=== PATIENT | female | born 1985 | race Caucasian/White ===

== ENCOUNTER 2020-06-09 06:36 | Outpatient (CLI) | payer OTHER, SELFPAY ==
--- NOTE | 2020-06-10 11:56 | WPDNEUROLOGY ---
Neurology EEG Report General Information Date of Study: 06/09/20 TEST EEG DIAGNOSIS Seizure CONDITION OF RECORDING Awake,drowsy and sleep EEG NUMBER [id number] CLINICAL HISTORY patient reported that for the last year she has been experiencing issues with cognitive thinking, losing train of thoughts, and also some memory loss EEG DESCRIPTION awake drowsy and sleep. Basic resting occipital frequency consist of moderate amount of fairly well-organized low to medium voltage 8 to 10 hertz per 2nd alpha admixed with low-voltage 15 to 18 hertz per 2nd beta activity. During drowsiness low-voltage beta activity seen diffusely admixed vexing and waning alpha activity posteriorly. Intermittent regular EKG artifact is noted anteriorly. Bilateral symmetrical sleep activity seen during sleep. Non paroxysmal nonfocal nonlateralizing. IMPRESSION . Normal EEG
== END 2020-06-09 06:37 | disposition home or self-care (01) ==
PROVIDERS: PCP Emergency Medicine; Visit Provider Psychiatry & Neurology Neurology
DX: R56.9 Unspecified convulsions (principal)
CPT/HCPCS: 95819

== ENCOUNTER 2021-02-05 13:33 | Outpatient (CLI) | payer OTHER, SELFPAY ==
--- NOTE | 2021-02-05 13:30 | ECG_ITS ---
Measurements Intervals [place] Rate: 65 P: 45 DC: 159 QRS: 24 QRSD: 92 T: 17 QT: 380 QTc: 397 Interpretive Statements SINUS RHYTHM BASELINE ARTIFACT- I, III, AVL, AVF NORMAL ECG Electronically Signed On 02-05-2021 21:04:59 CDT by Sunny Saeed D.O.
[2021-02-05 14:19] LABS: Hematocrit 38.1 % (37.0-47.0); Hemoglobin 11.4 g/dL (12.0-15.0)
[2021-02-05 14:32] LABS: Anion Gap 11 mmol/L (8-16); Blood Urea Nitrogen 9 mg/dL (7-17); Calcium 9.6 mg/dL (8.4-10.2); Carbon Dioxide 26 mmol/L (22-30); Chloride 105 mmol/L (98-107); Estimated Glomerular Filt Rate > 60; Glucose 111 mg/dL (65-105); Potassium 3.8 mmol/L (3.4-5.0); Sodium 142 mmol/L (137-145)
== END 2021-02-05 13:34 | disposition home or self-care (01) ==
LOC: ANHSURGERY 13:35
PROVIDERS: Anesthesiology; PCP Emergency Medicine; Visit Provider Surgery
DX: E11.9 Type 2 diabetes mellitus without complications (principal); Z79.899 Other long term (current) drug therapy; D64.9 Anemia, unspecified; I10 Essential (primary) hypertension; Z01.818 Encounter for other preprocedural examination
CPT/HCPCS: 36415; 80048; 85014; 85018; 93005

== ENCOUNTER → 2021-02-10 00:23 | Outpatient (CLI) | payer OTHER, SELFPAY ==
[2021-02-10 17:56] LABS: SARS-CoV-2 RNA PCR Negative
== END ==
PROVIDERS: PCP Emergency Medicine; Visit Provider Surgery
DX: Z01.812 Encounter for preprocedural laboratory examination (principal); Z20.822 Contact with and (suspected) exposure to COVID-19
CPT/HCPCS: C9803; U0003; U0005

== ENCOUNTER 2021-02-14 00:53 | Day surgery (SDC) | payer OTHER, SELFPAY ==
[2021-01-03 11:42] VITALS: BMI 42.7
--- NOTE | 2021-02-13 08:02 | PM.SD2 ---
Same Day Admit/Disch: HPI History of Present Illness Chief complaint: internal and external hemorrhoids stage 4 Narrative: Theresa Dutta is a 35 year old female Who was seen in the office back in November with complaints of hemorrhoids. She has noticed hemorrhoidal protrusion, prolapse, as well as some bleeding and itching. This is bothering her at least a couple times a week. She was noted to have stage IV internal and external hemorrhoids in both the right anterior and right posterior position. She is taken to surgery now for hemorrhoidectomy under anesthesia. Patient has a history of polycystic ovarian syndrome, morbid obesity, hypothyroidism, and hypertension. [facility] Past Medical History Medical History (Updated 02/14/21 @ 09:52 by Baldev Gallardo MD) BMI 40.0-44.9, adult Cognitive and behavioral changes Diabetes mellitus HTN (hypertension) Hypothyroidism (acquired) Morbid obesity with BMI of 40.0-44.9, adult PCOS (polycystic ovarian syndrome) Family History Family History Mother Hypertension Family history of elevated blood lipids Sibling Hypertension Social History Social History Smoking status: Never smoker Tobacco type: cigarettes Alcohol intake: current Alcohol use details: ONCE A YEAR Substance use: never Substance use type: does not use Living arrangements: with family 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 Gender identity (if verbalized by the patient): Female Spiritual care concerns: No Same Day Admit/Disch: Med Pre-admit Medications Home Medications Medication Instructions Recorded Confirmed Type hydrochlorothiazide 25 mg tablet 25 mg PO DAILY 08/10/19 02/14/21 History levothyroxine 25 mcg tablet 25 mcg PO DAILY 08/10/19 02/14/21 History metformin 1,000 mg tablet,extended 1,000 mg PO BID 08/10/19 02/14/21 History release 24hr metoprolol succinate 25 mg 25 mg PO DAILY 04/18/20 02/14/21 History tablet,extended release 24 hr cholecalciferol (vitamin D3) 1,250 50,000 unit PO WEEKLY cap 06/28/20 02/14/21 History mcg (50,000 unit) capsule ezetimibe 10 mg tablet 10 mg PO DAILY #90 tablet 09/25/20 02/14/21 Rx ferrous sulfate 325 mg PO BID 01/03/21 02/14/21 History ketorolac 10 mg PO Q6H 4 Days #16 tablet 02/14/21 Rx oxycodone-acetaminophen [Percocet] 1 - 2 tablet PO Q6H PRN #30 tablet 02/14/21 Rx Exam Const: General: comfortable, no acute distress, alert and awake HENMT: Head: normocephalic and atraumatic Mouth: Yes Normal oral and palatal mucosa present Eyes: Conjunctivae: conjunctivae normal Pupils: Equal, round and reactive pupils present EOM: EOMs intact bilaterally Neck: Neck: normal visual inspection, no lymphadenopathy and nontender Resp: Effort & Inspection: normal respiratory effort Auscultation: clear to auscultation bilaterally Cardio: Rate: regular rate Rhythm: regular rhythm Heart sounds: no gallops, no murmurs and no rubs GI: Inspection: non-distended and obesity GI Palp: Yes Soft to palpation, No Tenderness to palpation present (GI), No Hepatomegaly present and No Splenomegaly present Rectal Exam: normal sphincter tone, External hemorrhoid(s) present and Internal hemorrhoid(s) present ( Stage IV, right anterior and right posterior location.) Skin: Lesions: no lesions Rashes: no rashes Neuro: General: no focal motor deficits and CN's II-XI intact bilaterally Cranial nerves: Yes Equal, round and reactive pupils present, Yes Bilaterally intact EOM present, Yes facial symmetry and Yes Midline tongue present Speech: normal speech Motor exam (neuro): 5/5 motor strength present throughout and Motor abnormalities not present Extrem: General: no clubbing, cyanosis or edema and edema Psych: Affect: normal affect Thought process: Normal thought process present Insight: Good insight present (Psych) DS: Summ
--- NOTE | 2021-02-13 13:18 | WPDANESEPPF ---
Anes - Initial Pre Proc Eval Procedure: Operation Date: 02/14/21 09:30 Proposed Procedures p Excision Two Complex Internal and External Hemorrhoids - Baldev Gallardo MD Date/Time: 02/13/21 13:18 Surgeon: Baldev Gallardo MD Pre Op Diagnosis: internal and external hemorrhoids stage 4 Patient Data Age: 35 Gender: F Height: 1.75 m Weight: 131.5 kg Allergies Allergy/AdvReac Type Severity Reaction Status Date / Time No Known Allergies Allergy Verified 02/14/21 08:01 Home Medications Medication Instructions Recorded Confirmed Type hydrochlorothiazide 25 mg tablet 25 mg PO DAILY 08/10/19 02/14/21 History levothyroxine 25 mcg tablet 25 mcg PO DAILY 08/10/19 02/14/21 History metformin 1,000 mg tablet,extended 1,000 mg PO BID 08/10/19 02/14/21 History release 24hr metoprolol succinate 25 mg 25 mg PO DAILY 04/18/20 02/14/21 History tablet,extended release 24 hr cholecalciferol (vitamin D3) 1,250 50,000 unit PO WEEKLY cap 06/28/20 02/14/21 History mcg (50,000 unit) capsule ezetimibe 10 mg tablet 10 mg PO DAILY #90 tablet 09/25/20 02/14/21 Rx ferrous sulfate 325 mg PO BID 01/03/21 02/14/21 History Patient hx anesthesia problems: none Family hx anesthesia problems: none PMFSH Past Medical History Medical History (Updated 02/13/21 @ 13:20 by Handy Martinez MD) BMI 40.0-44.9, adult Cognitive and behavioral changes Diabetes mellitus HTN (hypertension) Hypothyroidism (acquired) Morbid obesity with BMI of 40.0-44.9, adult PCOS (polycystic ovarian syndrome) Family History Family History Mother Hypertension Family history of elevated blood lipids Sibling Hypertension Social History Social History Smoking status: Never smoker Tobacco type: cigarettes Alcohol intake: current Alcohol use details: ONCE A YEAR Substance use: never Substance use type: does not use Living arrangements: with family 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 Questions were solicited and answers provided to the satisfaction of the patient/family/POA.
[2021-02-14] VITALS (10 sets, daily range): BP systolic 131–154; BP diastolic 82–93; PULSE 78–101; RESP 16–20; TEMP 36.3–36.4; O2SAT 95–100
[2021-02-14] MEDS: ACETAMINOPHEN 500 MG TABLET 1000 MG PO (08:04)
[2021-02-14] MEDS: KETOROLAC 15 MG/ML VIAL (*BKC) IV PUSH (08:22)
[2021-02-14] MEDS: LACTATED RINGERS 1,000 ML 30 ML IV CONT ×2 (08:22→09:52)
--- NOTE | 2021-02-14 08:37 | WPDHPUPDATE1 ---
History and Physical Update Update Date/Time: 02/14/21 08:37 History and Physical has been reviewed, including an updated exam of the patient. There are NO changes in the patient's condition. Risks, benefits, and alternatives have been discussed and questions answered. Patient agrees to proceed with procedure.
[2021-02-14] MEDS: ceFAZolin 3 GM/D5W 100 ML 100 ML IVPB (08:49)
[2021-02-14] MEDS: BUPIVACAINE/EPINEPHRINE 0.5% 10 ML VIAL 50 ML INFILTRATE (09:35)
--- NOTE | 2021-02-14 09:57 | P.OP_ITS ---
Procedure Note - Detailed Date of Procedure 02/14/21 Pre-op Diagnosis internal and external hemorrhoids stage 4 Post-op Diagnosis same Procedure Performed Excision 2 complexes internal and external hemorrhoids Surgeon Baldev Gallardo MD Detail Technician Gaye Kendallmelanie REVIEW COORDINATOR REVIEW COORDINATOR Anesthesia general and local (0.5% Marcaine with epinephrine; Exparel) Indications Patient has had chronic prolapsed internal and external hemorrhoids for quite some time. They are uncomfortable and bleed intermittently. Exam showed 2 complexes of stage IV internal and external hemorrhoids -1 at the right anterior location, the other at the right posterior location. She is taken to surgery now for excision of both complexes. Findings Stage IV internal and external hemorrhoids at the expected positions as noted above. Description of Procedure Patient was taken to surgery and induced into general anesthesia. She was then turned prone dimitri-knife position. The buttocks were taped apart. Prep and drape was carried out. 0.5% Marcaine with epinephrine local anesthesia was infiltrated using a total of 40 cc. 20 cc was infiltrated deep subdermal. 20 cc was infiltrated intrasphincteric. We placed a medium Hill-Becerra anoscope in the rectum. The area was inspected and no additional findings were noted. We turned our attention to the largest of the 2 complexes which was at the right anterior position. This complex of internal and external hemorrhoids were then excised with the cautery. Cautery was used for hemostasis. The wound was closed with running locking 4 0 chromic suture. We then exposed the right posterior complex. Similarly, the internal and external hemorrhoids were excised. The wound was closed with running locking 4 0 chromic suture. Once both hemorrhoidal complexes were removed, we then infiltrated 20 cc of Exparel. The Exparel was infiltrated primarily around the areas of the 2 excisions. All 20 cc were used. We then dressed the wound with Xeroform gauze fluffs and pr omise panties. Patient was returned to a supine position. She was awakened and taken to recovery in good condition. Sponge and needle counts were correct x2. Estimated Blood Loss 5 Drains No Packing No Pathology yes (Right anterior internal and external hemorrhoids, right posterior internal and external hemorrhoids.) Complications None Condition stable Disposition PACU
[2021-02-14] MEDS: ONDANSETRON INJ 4 MG/2 ML VIAL IV PUSH (10:10)
[2021-02-14 10:21] LABS: Glucose Point of Care 194 mg/dl (65-105)
[2021-02-14] MEDS: HALOPERIDOL LACTATE 5 MG/ML VIAL 1 MG IV PUSH (10:43)
[2021-02-14] MEDS: SCOPOLAMINE 1.5 MG PATCH TRANSDERM (10:43)
== END 2021-02-14 11:59 | disposition home or self-care (01) ==
PROVIDERS: PCP Emergency Medicine; Visit Provider Surgery
PROC: (CPT 46260; principal; 2021-02-14 09:30)
DX: K64.3 Fourth degree hemorrhoids (principal); K64.4 Residual hemorrhoidal skin tags; I10 Essential (primary) hypertension; E11.9 Type 2 diabetes mellitus without complications; E03.9 Hypothyroidism, unspecified; E28.2 Polycystic ovarian syndrome; E66.01 Morbid (severe) obesity due to excess calories; Z68.41 Body mass index [BMI] 40.0-44.9, adult; Z79.84 Long term (current) use of oral hypoglycemic drugs
CPT/HCPCS: 46260; 82948; 88304; A9270; C9290; J0330; J0690; J1100; J1630; J1885; J2250; J2405; J2704; J3010; J7120

== ENCOUNTER → 2021-07-07 00:07 | Outpatient (CLI) | payer OTHER, SELFPAY ==
[2021-07-07 17:39] LABS: SARS-CoV-2 RNA PCR Negative
== END ==
PROVIDERS: PCP Emergency Medicine; Visit Provider Surgery
DX: Z01.812 Encounter for preprocedural laboratory examination (principal); Z20.822 Contact with and (suspected) exposure to COVID-19
CPT/HCPCS: C9803; U0003; U0005

== ENCOUNTER 2021-07-11 02:10 | Day surgery (SDC) | payer OTHER, SELFPAY ==
[2021-07-04 12:31] VITALS: BMI 43.5
--- NOTE | 2021-07-04 13:45 | PC.NURSE ---
Report to the Outpatient Waiting Room, entrance under the green pavilion located off [facility], at time __0600 on date ____07/11/21___. OR Time: ___729 . - You and your visitor will be asked a series of questions to screen for COVID 19 for your protection. - A mask is required within the hospital. - Only one visitor is allowed at this time. Patient visitors will be guided where to wait when not with patient. Preoperative COVID Testing Requirements: No COVID Test needed if: (proof is required; if not received patient will have Rapid Test prior to entry) - Patient has received COVID Vaccine at least 14 days prior to procedure date or - Patient has positive COVID test result within last 90 days of surgery date. COVID Test needed if above criteria is not met If not COVID vaccinated a COVID test must be conducted within 72 hours of surgery and patient is asked to isolate self from time of testing until procedure. You will go to the [employer] [facility] for your COVID testing. The [employer] [facility] site is located at the corner of [address] [facility]. COVID SWAB TEST 07/07/21 @ 0910 You will only be called if COVID results are positive and your surgeon may reschedule your elective surgery date. Patients may have clear liquids (water, carbonated beverages, clear teas, apple juice) until 3 hours prior to surgery with a maximum of 20 ounces. - No food from midnight until time of surgery STOP CLEAR LIQUIDS @ 0430 ON DAY OF SURGERY - Infants may have breast milk until 4 hours before surgery, infant formula 6 hours prior to surgery. - Children will be allowed to drink immediately following surgery. If applicable, please bring a bottle or sippy cup to assist with drinking. Juice, water, soda, and popsicles are readily available. For infants on formula, please bring formula the day of surgery. Pacifiers are allowed. Take the following medications with a SIP of water the morning of surgery: _METOPROLOL, LEVOTHYROXINE Medications to discontinue per physician N/A Date to take last dose N/A Please no make-up, nail armenian, hairspray, perfume, deodorant, or body powder the day of surgery. No jewelry (including any body piercings) or valuables the day of surgery, leave them at home. Please take a shower or bath the night before, or the morning of, surgery with an antibacterial soap. Wear comfortable, loose fitting clothing. Children are encouraged to wear pajamas. - Jewelry must be removed prior to entering the operating room. Rings and piercings that are not removed may be cut off. - The hospital will not accept responsibility for valuables. - Please leave all valuables, including medications, at home the day of surgery. If you are going home after surgery, a licensed logging truck driver must drive you home. - NO public transportation without another adult. - We recommend that an adult stay with you for 24 hours following discharge. - We also recommend that you do not drive, make important decision, drink alcoholic beverages, or take any drugs that were not prescribed by your health care provider for at least 24 hours after your discharge time. For Pediatric surgeries, we recommend two adults accompany the child home (only one inside the building at this time). Follow any additional instructions given to you from your surgeon. Telephone instructions given to DOMINIK and asked if any additional questions and then verbalized understanding. Patient advised to call surgeon office or pre surgery nurse liaison [phone] if any additional questions.
--- NOTE | 2021-07-10 13:46 | PM.SD2 ---
Same Day Admit/Disch: HPI History of Present Illness Chief complaint: Anal Fissure Narrative: Theresa Dutta is a 35 year old femaleWho underwent excision of 2 complexes of internal and external hemorrhoids on February 14, 2021. Following that surgery she had significant rectal pain. From there she had persistent pain and developed an anal fissure. This is been treated with bulk fiber supplements, mineral oil, and smooth muscle relaxants including nifedipine. 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 She is taken to surgery now for lateral internal sphincterotomy. She has a history of non insulin-dependent diabetes, essential hypertension, hypothyroidism, and polycystic ovarian syndrome. [facility] Past Medical History Medical History BMI 40.0-44.9, adult Cognitive and behavioral changes Diabetes mellitus HTN (hypertension) Hypothyroidism (acquired) Morbid obesity with BMI of 40.0-44.9, adult PCOS (polycystic ovarian syndrome) Surgical History Surgical History H/O hemorrhoidectomy 02/14/21 Excision 2 complexes internal and external hemorrhoids Family History Family History Mother Hypertension Family history of elevated blood lipids Sibling Hypertension Social History Social History Alcohol intake: current Alcohol use details: ONCE A YEAR Substance use: never Substance use type: does not use Living arrangements: with family 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 Gender identity (if verbalized by the patient): Female Sexual Orientation (if Verbalized by the Patient): Straight or Heterosexual Spiritual care concerns: No Same Day Admit/Disch: Med Pre-admit Medications Home Medications Medication Instructions Recorded Confirmed Type hydrochlorothiazide 25 mg tablet 25 mg PO DAILY 08/10/19 07/11/21 History levothyroxine 25 mcg tablet 25 mcg PO DAILY 08/10/19 07/11/21 History metformin 1,000 mg tablet,extended 1,000 mg PO BID 08/10/19 07/11/21 History release 24hr metoprolol succinate 25 mg 25 mg PO DAILY 04/18/20 07/11/21 History tablet,extended release 24 hr cholecalciferol (vitamin D3) 1,250 50,000 unit PO WEEKLY cap 06/28/20 07/11/21 History mcg (50,000 unit) capsule ezetimibe 10 mg tablet 10 mg PO DAILY #90 tablet 09/25/20 07/11/21 Rx ferrous sulfate 325 mg PO BID 01/03/21 07/11/21 History amlodipine [Norvasc] 5 mg PO DAILY 07/04/21 07/11/21 History hydrocodone-acetaminophen 1 - 2 tablet PO Q6H PRN #20 tablet 07/11/21 Rx ketorolac 10 mg PO Q6H 4 Days #16 tablet 07/11/21 Rx mineral oil 15 ml PO BID #473 ml 07/11/21 Rx psyllium husk (with sugar) 1 tbsp PO BID #60 packet 07/11/21 Rx [Metamucil (with sugar)] Exam Const: General: comfortable, no acute distress, alert and awake HENMT: Head: normocephalic and atraumatic Mouth: Yes Normal oral and palatal mucosa present Eyes: Conjunctivae: conjunctivae normal Pupils: Equal, round and reactive pupils present EOM: EOMs intact bilaterally Neck: Neck: normal visual inspection, no lymphadenopathy and nontender Resp: Effort & Inspection: normal respiratory effort Auscultation: clear to auscultation bilaterally Cardio: Rate: regular rate Rhythm: regular rhythm Heart sounds: no gallops, no murmurs and no rubs GI: Inspection: non-distended and obesity GI Palp: Yes Soft to palpation, No Tenderness to palpation present (GI), No Hepatomegaly present and No Splenomegaly present Rectal Exam: abnormal sphincter tone increased, Anal fissure(s) present ( Posterior midline), No mass and tenderness Skin: Lesions: no lesions Rashes: no rashes Neuro: General: no focal motor deficits and CN's II-XI intact bilaterally Cranial nerves: Yes Equal, round and reactive pupils present, Yes Bilaterally
[2021-07-11] VITALS (8 sets, daily range): BP systolic 116–144; BP diastolic 79–92; PULSE 83–105; RESP 10–18; TEMP 36.4–36.9; O2SAT 97–100
--- NOTE | 2021-07-11 06:45 | WPDANESEPPF ---
Anes - Initial Pre Proc Eval Procedure: Operation Date: 07/11/21 07:30 Proposed Procedures p Lateral Internal Sphincterotomy - Baldev Gallardo MD Date/Time: 07/11/21 06:45 Surgeon: Baldev Gallardo MD Pre Op Diagnosis: Anal Fissure Patient Data Age: 35 Gender: F Height: 1.73 m Weight: 130 kg Allergies Allergy/AdvReac Type Severity Reaction Status Date / Time No Known Allergies Allergy Verified 06/04/21 10:34 Home Medications Medication Instructions Recorded Confirmed Type hydrochlorothiazide 25 mg tablet 25 mg PO DAILY 08/10/19 07/04/21 History levothyroxine 25 mcg tablet 25 mcg PO DAILY 08/10/19 07/04/21 History metformin 1,000 mg tablet,extended 1,000 mg PO BID 08/10/19 07/04/21 History release 24hr metoprolol succinate 25 mg 25 mg PO DAILY 04/18/20 07/04/21 History tablet,extended release 24 hr cholecalciferol (vitamin D3) 1,250 50,000 unit PO WEEKLY cap 06/28/20 07/04/21 History mcg (50,000 unit) capsule ezetimibe 10 mg tablet 10 mg PO DAILY #90 tablet 09/25/20 07/04/21 Rx ferrous sulfate 325 mg PO BID 01/03/21 07/04/21 History amlodipine [Norvasc] 5 mg PO DAILY 07/04/21 07/04/21 History Patient hx anesthesia problems: none Family hx anesthesia problems: none Results Review: All pre-operative results and documents have been reviewed as part of the pre-operative evaluation. [facility] Past Medical History Medical History BMI 40.0-44.9, adult Cognitive and behavioral changes Diabetes mellitus HTN (hypertension) Hypothyroidism (acquired) Morbid obesity with BMI of 40.0-44.9, adult PCOS (polycystic ovarian syndrome) Surgical History Surgical History H/O hemorrhoidectomy 02/14/21 Excision 2 complexes internal and external hemorrhoids Family History Family History Mother Hypertension Family history of elevated blood lipids Sibling Hypertension Social History Social History Alcohol intake: current Alcohol use details: ONCE A YEAR Substance use: never Substance use type: does not use Living arrangements: with family 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 Informed Consent: The patient's anesthetic plan and its attendant risks and benefits were discussed with the patient/family/POA. Questions were solicited and answers provided to the satisfaction of the patient/family/POA.
[2021-07-11] MEDS: ACETAMINOPHEN 500 MG TABLET 1000 MG PO (07:02)
[2021-07-11] MEDS: SCOPOLAMINE 1.5 MG PATCH TRANSDERM (07:04)
[2021-07-11] MEDS: LACTATED RINGERS 1,000 ML 30 ML IV CONT ×3 (07:05→11:08)
[2021-07-11] MEDS: KETOROLAC 15 MG/ML VIAL (*BKC) IV PUSH (07:08)
--- NOTE | 2021-07-11 07:27 | SUR.PREOP ---
Dr. Gallardo delayed until 0830 for surgery start time, patient and visitor informed.
--- NOTE | 2021-07-11 08:25 | WPDHPUPDATE1 ---
History and Physical Update Update Date/Time: 07/11/21 08:25 History and Physical has been reviewed, including an updated exam of the patient. There are NO changes in the patient's condition. Risks, benefits, and alternatives have been discussed and questions answered. Patient agrees to proceed with procedure.
[2021-07-11] MEDS: ceFAZolin 3 GM/D5W 100 ML 100 ML IVPB (08:44)
[2021-07-11] MEDS: BUPIVACAINE HCL 0.5% PF 30 ML VIAL 20 ML INFILTRATE (09:12)
--- NOTE | 2021-07-11 09:25 | P.OP_ITS ---
Procedure Note - Detailed Date of Procedure 07/11/21 Pre-op Diagnosis Anal Fissure Post-op Diagnosis same Procedure Performed Lateral internal sphincterotomy Surgeon Baldev Gallardo MD Personnel Manager Salima Jaimes [facility] Anesthesia general and local (0.5% Marcaine with Exparel) Indications Patient had complex hemorrhoidectomy 5 months ago. She had problems with persistent rectal pain and has developed a posterior anal fissure. This is failed the heal despite multiple nonsurgical treatment attempts. She is taken to surgery now for lateral internal sphincterotomy. Findings The posterior midline fissure was extremely extensive. It not only included the posterior midline but also involved the entire anal canal with exposed sphincter muscle and mucus exudate in the posterior midline. Sphincter tone was increased as expected. Description of Procedure The patient was taken to surgery and induced into general anesthesia. She was then turned into a prone position and positioned in prone dimitri-knife. The buttocks were taped apart. Prep and drape was carried out. The findings associated in the posterior midline were as above. Local anesthesia was infiltrated using 20 cc deep subdermal and 20 cc intra sphincteric. A small incision was made in the left lateral position. Using a small curved clamp, the lower 3rd of the internal sphincter muscle was gently dissected and brought up into the incision. It was divided with the cautery. Cautery was used for hemostasis on some of the anal canal mucosa as well. Gentle pressure was held and hemostasis looked good. The rectal area was dressed with Xeroform gauze fluffs and promise panties. The patient was returned to a supine position, awakened, extubated and then taken to recovery in good condition. Sponge and needle counts were correct x2. Estimated Blood Loss -5 Drains No Packing No Pathology none sent Complications No immediate complications Condition stable Disposition PACU
--- NOTE | 2021-07-11 11:40 | SUR.PHASEII ---
Patient's vitals are all stable and she is getting dressed.
== END 2021-07-11 11:45 | disposition home or self-care (01) ==
PROVIDERS: PCP Emergency Medicine; Visit Provider Surgery
PROC: (CPT 46080; principal; 2021-07-11 07:30)
DX: K60.1 Chronic anal fissure (principal); K59.4 Anal spasm; I10 Essential (primary) hypertension; E11.9 Type 2 diabetes mellitus without complications; E03.9 Hypothyroidism, unspecified; E28.2 Polycystic ovarian syndrome; E66.01 Morbid (severe) obesity due to excess calories; Z68.41 Body mass index [BMI] 40.0-44.9, adult; Z79.84 Long term (current) use of oral hypoglycemic drugs
CPT/HCPCS: 46080; A9270; C9290; J0330; J0690; J1100; J1885; J2250; J2405; J2704; J3010; J7120

== ENCOUNTER 2022-07-11 13:49 | Outpatient (CLI) | payer OTHER, SELFPAY ==
--- NOTE | ~2022-07-11 | MMUS_ITS ---
EXAMINATION: MM diagnostic moni BI w thomas, US breast BI complete HISTORY: Bilateral nipple pain, tenderness, inverted nipples TECHNIQUE: ML, MLO and craniocaudal 3-D tomosynthesis images of both breasts were performed and [facility] were generated. CAD analysis was submitted and interpreted. High resolution bilateral complete breast ultrasound including all 4 quadrants and subareolar areas was performed. COMPARISON: None BREAST PARENCHYMAL COMPOSITION: The breasts are heterogeneously dense, which may obscure small masses . FINDINGS: MAMMOGRAPHIC FINDINGS: No suspicious mass or architectural distortion, malignant calcification, skin thickening or retractio n is detected. ULTRASOUND: No suspicious mass or shadowing of either breast is detected. 3 mm cyst of left breast at 10:00. 1.4 x 3 mm cyst of left breast at 2:00. IMPRESSION: 1. Benign findings 2. Routine mammographic screening is recommended BI-RADS Category 2: Benign finding(s). Reviewed, dictated and finalized at location A. SBAND LAYER IMPRESSION: 1. Benign findings 2. Routine mammographic screening is recommended BI-RADS Category 2: Benign finding(s).
--- NOTE | ~2022-07-11 | US_ITS ---
EXAMINATION: US pelvic complete w TV DATE: 07/11/2022 16:45 INDICATION: Abnormal uterine bleeding. TECHNIQUE: Multiple transabdominal and transvaginal sonographic images of the pelvis were obtained. COMPARISON: None. FINDINGS: TRANSABDOMINAL ULTRASOUND: The uterus measures 11.9 x 6.4 x 5.9 cm. There is no free fluid in the pelvis. TRANSVAGINAL ULTRASOUND: The endometrial complex measures 6 mm in thickness. There are nabothian cysts in the cervix. The ovar ies are not visualized. IMPRESSION: 1. No etiology for abnormal uterine bleeding. Reviewed, dictated and finalized at location A. DEVELOPER
== END 2022-07-11 13:50 | disposition home or self-care (01) ==
LOC: ANHIMG 13:50
PROVIDERS: PCP Emergency Medicine; Visit Provider Nurse Practitioner
DX: N93.8 Other specified abnormal uterine and vaginal bleeding (principal); N64.59 Other signs and symptoms in breast
CPT/HCPCS: 76641; 76830; 76856; 77062; 77066; G0279

== ENCOUNTER 2022-09-12 10:50 | Outpatient (CLI) | payer OTHER, SELFPAY | END 2022-09-12 10:51 | disposition home or self-care (01) | LOC: ANHAUDIO 10:51 | PROVIDERS: PCP Emergency Medicine; Visit Provider Otolaryngology | DX: H91.90 Unspecified hearing loss, unspecified ear (principal) | CPT/HCPCS: 92557; 92567 ==

== ENCOUNTER 2022-12-03 13:45 | Outpatient (CLI) | payer OTHER, SELFPAY ==
--- NOTE | ~2022-12-03 | XR_ITS ---
EXAMINATION:XR_CERV2-3V_CR DATE: 12/03/2022 14:20 INDICATION: Neck pain TECHNIQUE: AP, lateral, lateral swimmers and odontoid views of the cervical spine are provided. COMPARISON: None FINDINGS: Alignment is normal. The odontoid process is intact. No fracture is identified. The vertebr al body heights are normal. There is mild loss of intervertebral disc space height at C4-5, C5-6, and C6-7. There is multilevel mild facet and uncovertebral joint osteoarthritis. Prevertebral soft tissu es are normal. IMPRESSION: 1. Mild cervical spondylosis without acute findings. Reviewed, dictated and finalized at location B.
--- NOTE | ~2022-12-03 | XR_ITS ---
EXAM: XR shoulder RT min 2V DATE: 12/03/2022 14:20 HISTORY: M25.511 - Pain right shoulder, rt neck X1mo, no inj, no surg . COMPARISON: None available. FINDINGS: Normal mineralization. No fracture or dislocation. No lytic or blastic lesion. Subchondral cyst formation in the distal right clavicle at the AC joint. No erosion or periosteal change. Soft t issues within normal limits. IMPRESSION: Mild AC joint osteoarthritis. Reviewed, dictated and finalized at location K.
== END 2022-12-03 13:46 | disposition home or self-care (01) ==
PROVIDERS: PCP Emergency Medicine; Visit Provider Emergency Medicine
DX: M47.892 Other spondylosis, cervical region (principal); M19.011 Primary osteoarthritis, right shoulder
CPT/HCPCS: 72040; 73030

== ENCOUNTER 2023-01-09 12:29 | Outpatient (CLI) | payer OTHER, SELFPAY ==
--- NOTE | ~2023-01-09 | MR_ITS ---
EXAMINATION: MR shoulder RT wo con DATE: 01/09/2023 13:14 INDICATION: Right shoulder pain. TECHNIQUE: Magnetic resonance imaging (MRI) of the right shoulder was performed without intravenous c ontrast. Sequences included axial PD-weighted FS FSE, coronal oblique PD-weighted FS FSE and T2-weigh wilber FS FSE, and sagittal oblique T2-weighted FS FSE and T1-weighted FSE. COMPARISON: Right shoulder radiographs 12/03/2022 FINDINGS: Coracoacromial arch: The acromion undersurface is curved in morphology (type II). There is mild acromioclavicular joint os teoarthritis. There is a subcortical fracture of distal clavicle with low signal fracture lines and e delilah-like marrow signal intensity. There is edema in the surrounding soft tissues. Rotator cuff: There is mild supraspinatus and infraspinatus tendinopathy. Teres minor tendon is normal. Subscapular is tendon is normal. No tear. The rotator cuff muscle bellies are normal. Biceps tendon and glenoid labrum: Biceps tendon is in bicipital groove. Intra-articular biceps tendon is normal. The glenoid labrum is normal. Fluid: There is no glenohumeral joint effusion. Bones/cartilage: Glenoid cartilage is normal. Humeral head cartilage is normal. IMPRESSION: 1. Subcortical fracture of distal clavicle. 2. Mild osteoarthritis of acromioclavicular joint. Reviewed, dictated and finalized at location E.
== END 2023-01-09 12:30 | disposition home or self-care (01) ==
PROVIDERS: PCP Emergency Medicine; Visit Provider Emergency Medicine
DX: M19.011 Primary osteoarthritis, right shoulder (principal)
CPT/HCPCS: 73221

== ENCOUNTER 2023-01-14 10:36 | Outpatient (CLI) | payer OTHER, SELFPAY ==
--- NOTE | ~2023-01-14 | US_ITS ---
Pelvic ultrasound. Clinical History: IUD placement Technique: Realtime transabdominal and transvaginal scanning of the pelvis was performed. Color flow Doppler and Doppler spectral analysis were performed. Findings: The uterus is anteverted. The endometrial stripe has a thickness of 5 mm. No focal mass is identified. IUD in satisfactory position. The right ovary measures 3.9 x 1.6 x 2.5 cm. No significant right ovarian or adnexal mass is seen. The left ovary measures 4.3 x 2.2 x 2.9 cm. No significant left ovarian or adnexal mass is seen. Vascular flow present in both ovaries on Doppler spectral analysis. There is no evidence of free fluid in the cul de sac. Impression: IUD in satisfactory position. Reviewed, dictated and finalized at [facility]. Impression: IUD in satisfactory position.
[2023-01-14 12:20] LABS: Alanine Aminotransferase 34 U/L (6-35); Albumin Level 4.2 g/dL (3.5-5.1); Alkaline Phosphatase 70 U/L (38-126); Anion Gap 7 mmol/L (8-16); Aspartate Amino Transferase 30 U/L (14-36); Bilirubin,Total 0.3 mg/dL (0.2-1.3); Blood Urea Nitrogen 10 mg/dL (7-17); Carbon Dioxide 27 mmol/L (22-30); Chloride 104 mmol/L (98-107); Cholesterol 175 mg/dL (0-200); Estimated Glomerular Filt Rate > 60; Glucose 101 mg/dL (65-110); HDL Direct 44 mg/dL; Potassium 3.7 mmol/L (3.4-5.0); Sodium 138 mmol/L (137-145); Triglycerides 159 mg/dL (<150)
[2023-01-14 12:31] LABS: LDL Cholesterol Direct 99 mg/dL
[2023-01-14 12:46] LABS: Thyroid Stimulating Hormone 0.678 uIU/mL (0.465-4.680)
== END 2023-01-14 10:37 | disposition home or self-care (01) ==
PROVIDERS: PCP Emergency Medicine; Visit Provider Nurse Practitioner
DX: E11.9 Type 2 diabetes mellitus without complications (principal); E78.5 Hyperlipidemia, unspecified; Z30.431 Encounter for routine checking of intrauterine contraceptive device
CPT/HCPCS: 36415; 76830; 76856; 80053; 80061; 83036; 84443

== ENCOUNTER 2023-01-21 10:55 | Outpatient (CLI) | payer OTHER, SELFPAY ==
--- NOTE | ~2023-01-21 | XR_ITS ---
XR abdomen/kub 1V 01/21/2023 11:16 Indication: Missing IUD Procedure: KUB Comparison: No prior studies for comparison. Findings: Bowel gas pattern is nonobstructive. No suspicious calcifications. No IUD identified. Mild lumbar spondylosis. Impression: 1: No acute abdominal abnormality. Reviewed, dictated and finalized at location L. Impression: 1: No acute abdominal abnormality.
== END 2023-01-21 10:56 | disposition home or self-care (01) ==
PROVIDERS: PCP Emergency Medicine; Visit Provider Obstetrics & Gynecology Gynecology
DX: T83.32XA Displacement of intrauterine contraceptive device, initial encounter (principal)
CPT/HCPCS: 74018

== ENCOUNTER 2023-02-01 14:47 | Emergency (ER) | payer OTHER, SELFPAY ==
[2023-02-01 14:50] VITALS: BP 151/90; PULSE 94; RESP 16; TEMP 36.6; O2SAT 100
--- NOTE | 2023-02-01 15:22 | ED.SKABFB ---
HPI - Skin/Abscess/Foreign Bdy General Chief complaint: Skin/Abscess/Foreign Body Stated complaint: rash Time Seen by Provider: 02/01/23 14:59 History of Present Illness HPI narrative: Patient is a 37-year-old female presenting with a rash. Patient states that she developed a rash underneath her breasts and in her groin several weeks ago. She went to urgent care and was treated with several creams. States that these rashes improved but then she developed a rash all over her abdomen and back. States that this rash is extremely itchy. States that it may have started after she started a Z-Aydin several weeks ago. States that she has been taking Claritin, Zyrtec, Benadryl with minimal relief. States that she became concerned that it might be shingles or chickenpox. She states that no one else in the household has similar symptoms. States she was unable to get in with her PCP so she came in today for evaluation. She denies fevers or other systemic symptoms. No mucosal involvement. No respiratory symptoms. Related Data Home Medications Medication Instructions Recorded Confirmed hydrochlorothiazide 25 mg tablet 25 mg PO DAILY 08/10/19 07/09/22 levothyroxine 25 mcg tablet 25 mcg PO DAILY 08/10/19 07/09/22 metformin 1,000 mg tablet,extended 1,000 mg PO BID 08/10/19 07/09/22 release 24hr metoprolol succinate 25 mg 25 mg PO DAILY 04/18/20 07/09/22 tablet,extended release 24 hr amlodipine 5 mg tablet (Norvasc) 5 mg PO DAILY 07/04/21 07/09/22 Allergies Allergy/AdvReac Type Severity Reaction Status Date / Time No Known Allergies Allergy Verified 02/04/23 15:19 Review of Systems Review of Systems: All systems reviewed & are unremarkable except as noted in HPI and below PMFSH Past Medical History Medical History BMI 40.0-44.9, adult Cognitive and behavioral changes Diabetes mellitus HTN (hypertension) Hyperglycemia Hypothyroidism (acquired) Morbid obesity with BMI of 40.0-44.9, adult Other iron deficiency anemias PCOS (polycystic ovarian syndrome) Rectal bleeding Residual hemorrhoidal skin tag Thyroid nodule Vitamin D deficiency Surgical History Surgical History H/O hemorrhoidectomy 02/14/21 Excision 2 complexes internal and external hemorrhoids H/O rectal sphincterotomy LATERAL INTERNAL SPINCTEROTOMY 07/11/21 Family History Family History Mother Hypertension Family history of elevated blood lipids Sibling Hypertension Social History Social History Smoking status: Never smoker Alcohol intake: current Alcohol use details: ONCE A YEAR Substance use: never Substance use type: does not use Lack of Transportation: No Lack of Food: Never True Current Housing: I Have Housing Concerned About Future Housing: No Difficulty Paying Gas/Electric Bills: No Difficulty Paying for Meds: No Currently Unemployed: No Education: High School Diploma/GED Difficulty w/ Childcare or Family Care: No Living arrangements: with family Occupation/Education: occupation 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 HEAD: Normocephalic, atraumatic. EYES: PERRLA and EOMI. ENT: Nares clear, no rhinorrhea or epistaxis. Mucous membranes moist. NECK: Supple. CHEST: No respiratory distress. HEART: Regular rate and rhythm. ABDOMEN: Soft, nondistended EXTREMITIES: Normal range of motion. No edema. SKIN: Warm, dry; diffuse hives on torso, scattered hives on bilateral upper extremities; no blisters, no vesicles, no evidence
== END 2023-02-01 15:53 | disposition home or self-care (01) ==
PROVIDERS: Emergency Provider Emergency Medicine; PCP Emergency Medicine
DX: L50.9 Urticaria, unspecified (principal); I10 Essential (primary) hypertension; E11.9 Type 2 diabetes mellitus without complications; E03.9 Hypothyroidism, unspecified; D50.9 Iron deficiency anemia, unspecified; E28.2 Polycystic ovarian syndrome; Z79.84 Long term (current) use of oral hypoglycemic drugs; E66.01 Morbid (severe) obesity due to excess calories; Z68.41 Body mass index [BMI] 40.0-44.9, adult
CPT/HCPCS: 99283

== ENCOUNTER 2023-05-13 10:45 | Outpatient (CLI) | payer OTHER, SELFPAY ==
[2023-05-13 11:16] LABS: Hematocrit 40.1 % (37.0-47.0); Hemoglobin 12.1 g/dL (12.0-15.0); Mean Corpuscular HGB Conc 30.2 g/dl (32-36); Mean Corpuscular Hemoglobin 23.7 pg (26-34); Mean Corpuscular Volume 78.5 fl (80-100); Mean Platelet Volume 10.3 fl (7.4-10.4); Platelet Count Result 279 k/mm3 (150-375); Red Blood Count 5.11 M/mm3 (4.2-5.4); White Blood Count 10.1 K/mm3 (4.5-10.0)
[2023-05-13 11:27] LABS: Hemoglobin A1C 5.7 % (<5.7)
[2023-05-13 11:31] LABS: Alanine Aminotransferase 19 U/L (6-35); Albumin Level 4.3 g/dL (3.5-5.1); Alkaline Phosphatase 68 U/L (38-126); Anion Gap 8 mmol/L (8-16); Aspartate Amino Transferase 25 U/L (14-36); Bilirubin,Total 0.3 mg/dL (0.2-1.3); Blood Urea Nitrogen 12 mg/dL (7-17); CRP 1.6 mg/dL (<1.0); Calcium 9.2 mg/dL (8.4-10.2); Carbon Dioxide 26 mmol/L (22-30); Chloride 104 mmol/L (98-107); Cholesterol 205 mg/dL (0-200); Estimated Glomerular Filt Rate > 60; Glucose 100 mg/dL (65-110); HDL Direct 52 mg/dL; Potassium 3.6 mmol/L (3.4-5.0); Sodium 138 mmol/L (137-145); Triglycerides 155 mg/dL (<150)
[2023-05-13 11:45] LABS: LDL Cholesterol Direct 121 mg/dL
[2023-05-13 11:55] LABS: Thyroid Stimulating Hormone 0.945 uIU/mL (0.465-4.680)
== END 2023-05-13 10:46 | disposition home or self-care (01) ==
LOC: ANHLAB 10:46
PROVIDERS: PCP Emergency Medicine; Visit Provider Emergency Medicine
DX: E03.9 Hypothyroidism, unspecified (principal); E78.5 Hyperlipidemia, unspecified; I10 Essential (primary) hypertension
CPT/HCPCS: 36415; 80053; 80061; 83036; 84443; 85027; 86140

== ENCOUNTER 2023-05-29 10:18 | Outpatient (CLI) | payer OTHER, SELFPAY ==
--- NOTE | ~2023-05-29 | US_ITS ---
US thyroid INDICATION: Nontoxic multinodular goiter TECHNIQUE: Real-time sonographic images of the thyroid gland were obtained. COMPARISON: No prior studies for comparison. FINDINGS: The right thyroid lobe measures 5.5 x 1.7 x 2.5 cm. The left thyroid lobe measures 7.2 x 3 .3 x 2.7 cm. Right lobe is homogeneous without discrete mass. There is a large complex heterogeneous appearing left thyroid mass which is mostly solid, hypoechoic, wider than tall, irregular margins wit h internal macrocalcifications, measuring 4.7 x 2 x 3.3 cm, TR 5. IMPRESSION: 1. Complex 4.7 cm left thyroid mass, TR 5. Ultrasound-guided fine-needle aspiration biopsy recommended. Reviewed, dictated and finalized at location L.
--- NOTE | ~2023-05-29 | US_ITS ---
EXAMINATION: US pelvic complete DATE: 05/29/2023 11:05 INDICATION: Pelvic pain Comparison:Ultrasound dated 01/14/2023 TECHNIQUE: Multiple transabdominal and endovaginal sonographic images of the pelvis performed. FINDINGS: The uterus measures 13.1 x 5.7 x 6.5 cm. The endometrial complex measures 10 mm. The right ovary measures 5 x 2.4 x 5.1 cm and the left ovary measures 3.9 x 2.1 x 2.8 cm. There is a 2.5 cm right ovarian cyst. There are small follicles in each ovary. Normal doppler signal in both ova dana. There is no free fluid in the pelvis. There are no abnormal masses seen on either side. IMPRESSION: 1. Right ovarian cyst measuring 2.5 cm. 2: Enlarged uterus. Reviewed, dictated and finalized at location L.
== END 2023-05-29 10:19 | disposition home or self-care (01) ==
PROVIDERS: PCP Emergency Medicine; Visit Provider Nurse Practitioner
DX: R10.2 Pelvic and perineal pain (principal); N85.2 Hypertrophy of uterus; N83.201 Unspecified ovarian cyst, right side; E04.2 Nontoxic multinodular goiter
CPT/HCPCS: 76536; 76856

== ENCOUNTER 2023-06-18 12:31 | Outpatient (CLI) | payer OTHER, SELFPAY ==
--- NOTE | ~2023-06-18 | US_ITS ---
EXAMINATION: US FNA w image guidance DATE: 06/18/2023 13:21 INDICATION: Nontoxic single thyroid nodule TECHNIQUE: A time-out was performed to verify the patient's name, date of , and procedure to be performed . The procedure and its benefits and risks were discussed with the patient. Risks specifically discus sed included bleeding and infection. The patient understood the risks and agreed to proceed. The neck was prepped and draped in the usual sterile manner. 5 mL 1% lidocaine was used for local anesthesia . 6 passes were made with a 25G needle into the lesion. Appropriate needle location was documented with continuous sonographic guidance. A sterile bandage was applied. There were no immediate compli cations. FINDINGS: Grayscale ultrasound images demonstrate biopsy needles advanced into a 3.5 x 2.9 x 2.4 cm heterogeneo us solid mass with coarse shadowing calcifications and lobular margins in the left thyroid lobe. IMPRESSION: 1. Successful ultrasound-guided fine needle aspiration of a 3.5 cm TI RADS 5 left thyroid mass.. Reviewed, dictated and finalized at location A. IMPRESSION: 1. Successful ultrasound-guided fine needle aspiration of a 3.5 cm TI RADS 5 l eft thyroid mass..
== END 2023-06-18 12:32 | disposition home or self-care (01) ==
LOC: ANHIMG 12:33
PROVIDERS: PCP Emergency Medicine; Visit Provider Emergency Medicine
DX: E04.1 Nontoxic single thyroid nodule (principal)
CPT/HCPCS: 10005; 88173; 88305

== ENCOUNTER 2023-11-14 13:10 | Outpatient (CLI) | payer OTHER, SELFPAY ==
--- NOTE | ~2023-11-14 | US_ITS ---
EXAMINATION: US pelvic complete w TV DATE: 11/14/2023 14:59 INDICATION: Abnormal bleeding. Comparison:No prior studies for comparison. TECHNIQUE: Multiple transabdominal and endovaginal sonographic images of the pelvis performed. FINDINGS: The uterus measures 10.4 x 5.2 x 7 cm. There are nabothian cysts. The endometrial complex m easures 1.7 cm. The right ovary measures 3.6 x 3.5 x 4 cm. There is a 2.6 cm right ovarian cyst. The left ovary is no t visualized. There is no free fluid in the pelvis. There are no abnormal masses seen on either side. IMPRESSION: 1. Endometrial thickening. Enlarged uterus. 2: Simple right ovarian cyst measuring 2.6 cm. Reviewed, dictated and finalized at location A.
== END 2023-11-14 13:11 | disposition home or self-care (01) ==
LOC: ANHIMG 13:12
PROVIDERS: PCP Emergency Medicine; Visit Provider Advanced Practice Midwife
DX: N83.201 Unspecified ovarian cyst, right side (principal); N93.8 Other specified abnormal uterine and vaginal bleeding; R10.2 Pelvic and perineal pain
CPT/HCPCS: 76830; 76856

== ENCOUNTER 2023-12-29 03:09 | Day surgery (SDC) | payer OTHER, SELFPAY ==
[2023-12-19 12:31] VITALS: BMI 44.1
--- NOTE | 2023-12-19 12:41 | PC.NURSE ---
Report to the Outpatient Waiting Room, entrance under the green pavilion located off [facility], at time 0830 on date 12/29/23. Planned Procedure Time: 1030. Time changes happen often and if your time is changed the preop area will call you the afternoon before. - You and your visitor will be asked to self-screen and do not enter if you have any COVID symptoms. - A mask is optional within the hospital at this time. Patients may have clear liquids (water, carbonated beverages, clear teas, apple juice) until 3 hours prior to surgery with a maximum of 20 ounces. - No food from midnight until time of surgery Take the following medications with a SIP of water the morning of surgery: LEVOTHYROXINE, METOPROLOL, ALPRAZOLAM IF NEEDED DO NOT STOP ANY OF YOUR OTHER PRESCRIPTION MEDICATIONS PRIOR TO SURGERY ?EXCEPT THE FOLLOWING Medications to discontinue per physician: VITAMINS/SUPPLEMENTS Date to take last dose: 12/25/23 Please no make-up, nail zimbabwean, hairspray, perfume, deodorant, or body powder the day of surgery. No jewelry (including any body piercings) or valuables the day of surgery, leave them at home. Please take a shower or bath the night before, or the morning of, surgery with an antibacterial soap. Wear comfortable, loose fitting clothing. - Jewelry must be removed prior to entering the operating room. Rings and piercings that are not removed may be cut off. - The hospital will not accept responsibility for valuables. - Please leave all valuables, including medications, at home the day of surgery. If you are going home after surgery, a licensed high lift driver must drive you home. - NO public transportation without another adult if you receive anesthesia. - We recommend that an adult stay with you for 24 hours following discharge. - We also recommend that you do not drive, make important decision, drink alcoholic beverages, or take any drugs that were not prescribed by your health care provider for at least 24 hours after your discharge time. Follow any additional instructions given to you from your surgeon. If you or anyone in your household have experienced Covid symptoms in the past week, please notify your surgeon or the nurse liaison at the phone number below for possible testing. Telephone instructions given to YANETH GEIGER and asked if any additional questions and then verbalized understanding. Patient advised to call surgeon office or pre surgery nurse liaison [phone] if any additional questions.
--- NOTE | 2023-12-29 07:16 | WPDHPUPDATE1 ---
History and Physical Update Update Date/Time: 12/29/23 07:16 History and Physical has been reviewed, including an updated exam of the patient. There are NO changes in the patient's condition. Risks, benefits, and alternatives have been discussed and questions answered. Patient agrees to proceed with procedure.
--- NOTE | 2023-12-29 07:16 | PM.HPGS ---
History of Present Illness History of Present Illness Consent: Risks, benefits, and alternatives have been discussed and questions answered. Patient agrees to proceed with procedure. Chief complaint: menorrhagia Narrative: Theresa Dutta is a 38 year old female with heavy irregular cycles. In addition she has been having spotting in between. Pelvic ultrasound is showing a slightly enlarged uterus. Otherwise no uterine abnormalities. Was recommended to undergo D&C hysteroscopy. Risks of infection, bleeding, perforation, and possible pathology are discussed. Patient voices understanding and agrees to proceed. Review of Systems Review of Systems: not repeated day of surgery; patient states no changes in status [facility] Past Medical History Medical History (Updated 12/29/23 @ 07:21 by Doretha Sifuentes MD) Anal fissure Arthritis of right acromioclavicular joint BMI 40.0-44.9, adult Diabetes mellitus HTN (hypertension) Hyperglycemia Hypothyroidism (acquired) Migraines (normal spontaneous vaginal delivery) x3 PCOS (polycystic ovarian syndrome) Surgical History Surgical History H/O hemorrhoidectomy 02/14/21 Excision 2 complexes internal and external hemorrhoids H/O rectal sphincterotomy LATERAL INTERNAL SPINCTEROTOMY 07/11/21 Family History Family History Mother Hypertension Family history of elevated blood lipids Sibling Hypertension Social History Social History Smoking status: Never smoker Alcohol intake: never Alcohol use details: ONCE A YEAR Substance use: never Substance use type: does not use Do You Feel Safe in your Home?: Yes Lack of Transportation: No Lack of Food: Never True Current Housing: I Have Housing Concerned About Future Housing: No Difficulty Paying Gas/Electric Bills: No Difficulty Paying for Meds: No Currently Unemployed: No Education: High School Diploma/GED Difficulty w/ Childcare or Family Care: No Living arrangements: with family Additional living arrangements comments: CHILDREN Occupation/Education: occupation 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 Gender identity (if verbalized by the patient): Female Sexual Orientation (if Verbalized by the Patient): Straight or Heterosexual Spiritual care concerns: No Meds Home Medications and Allergies Home Medications Medication Instructions Recorded Confirmed Type hydrochlorothiazide 25 mg tablet 25 mg PO DAILY 08/10/19 12/19/23 History levothyroxine 25 mcg tablet 25 mcg PO DAILY 08/10/19 12/19/23 History metformin 1,000 mg tablet,extended 1,000 mg PO BID 08/10/19 12/19/23 History release 24hr (osmotic) metoprolol succinate 25 mg 25 mg PO DAILY 04/18/20 12/19/23 History tablet,extended release 24 hr amlodipine 5 mg tablet (Norvasc) 5 mg PO HS 07/04/21 12/19/23 History fluticasone propionate 50 See Rx Instructions .Route 07/15/23 12/19/23 Rx mcg/actuation nasal .COMPLEX #48 grams spray,suspension ferrous sulfate 325 mg (65 mg See Rx Instructions .Route 09/26/23 12/19/23 Rx iron) tablet (FeroSul) .COMPLEX #180 tabs escitalopram oxalate 10 mg tablet 10 mg PO DAILY #90 tabs 10/29/23 12/19/23 Rx (Lexapro) alprazolam 0.5 mg tablet (Xanax) 0.5 mg PO BID PRN anxiety #30 tabs 11/20/23 12/19/23 Rx ezetimibe 10 mg tablet See Rx Instructions .Route 11/24/23 12/19/23 Rx .COMPLEX #90 tabs biotin 10,000 mcg chewable tablet 10,000 mcg PO DAILY 12/19/23 12/19/23 History (Hair, Skin and Nails (biotin)) Allergies Allergy/AdvReac Type Severity Reaction Status Date / Time No Known Allergies Allergy Verified 12/19/23 12:29 Exam Const: General: healthy appearing and alert Orientation/consciousness: patient oriented x3 Resp: Effort & Inspection: normal respiratory ef
[2023-12-29 08:55] VITALS: BP 135/105; PULSE 82; RESP 16; TEMP 36.3; O2SAT 100
--- NOTE | 2023-12-29 09:06 | WPDANESEPPF ---
Anes - Initial Pre Proc Eval Procedure: Operation Date: 12/29/23 10:30 Proposed Procedures p Hysteroscopy Dilation and Curettage - Doretha Sifuentes MD Date/Time: 12/29/23 09:06 Surgeon: Doretha Sifuentes MD Pre Op Diagnosis: menorrhagia Patient Data Age: 38 Gender: F Height: 1.73 m Weight: 132.8 kg Last Vital Signs Temp 36.3 C L 12/29/23 08:55 Pulse 82 12/29/23 08:55 Resp 16 12/29/23 08:55 BP 135/105 H 12/29/23 08:55 Pulse Ox 100 12/29/23 08:55 O2 Del Method Room Air 12/29/23 08:55 Allergies Allergy/AdvReac Type Severity Reaction Status Date / Time No Known Allergies Allergy Verified 12/29/23 08:52 Home Medications Medication Instructions Recorded Confirmed Type hydrochlorothiazide 25 mg tablet 25 mg PO DAILY 08/10/19 12/29/23 History levothyroxine 25 mcg tablet 25 mcg PO DAILY 08/10/19 12/29/23 History metformin 1,000 mg tablet,extended 1,000 mg PO BID 08/10/19 12/29/23 History release 24hr (osmotic) metoprolol succinate 25 mg 25 mg PO DAILY 04/18/20 12/29/23 History tablet,extended release 24 hr amlodipine 5 mg tablet (Norvasc) 5 mg PO HS 07/04/21 12/29/23 History fluticasone propionate 50 See Rx Instructions .Route 07/15/23 12/29/23 Rx mcg/actuation nasal .COMPLEX #48 grams spray,suspension ferrous sulfate 325 mg (65 mg See Rx Instructions .Route 09/26/23 12/29/23 Rx iron) tablet (FeroSul) .COMPLEX #180 tabs escitalopram oxalate 10 mg tablet 10 mg PO DAILY #90 tabs 10/29/23 12/29/23 Rx (Lexapro) alprazolam 0.5 mg tablet (Xanax) 0.5 mg PO BID PRN anxiety #30 tabs 11/20/23 12/29/23 Rx ezetimibe 10 mg tablet See Rx Instructions .Route 11/24/23 12/29/23 Rx .COMPLEX #90 tabs biotin 10,000 mcg chewable tablet 10,000 mcg PO DAILY 12/19/23 12/29/23 History (Hair, Skin and Nails (biotin)) Patient hx anesthesia problems: none Family hx anesthesia problems: none Results Review: All pre-operative results and documents have been reviewed as part of the pre-operative evaluation. [facility] Past Medical History Medical History Anal fissure Arthritis of right acromioclavicular joint BMI 40.0-44.9, adult Diabetes mellitus HTN (hypertension) Hyperglycemia Hypothyroidism (acquired) Migraines (normal spontaneous vaginal delivery) x3 PCOS (polycystic ovarian syndrome) Surgical History Surgical History H/O hemorrhoidectomy 02/14/21 Excision 2 complexes internal and external hemorrhoids H/O rectal sphincterotomy LATERAL INTERNAL SPINCTEROTOMY 07/11/21 Family History Family History Mother Hypertension Family history of elevated blood lipids Sibling Hypertension Social History Social History Smoking status: Never smoker Alcohol intake: never Alcohol use details: ONCE A YEAR Substance use: never Substance use type: does not use Do You Feel Safe in your Home?: Yes Lack of Transportation: No Lack of Food: Never True Current Housing: I Have Housing Concerned About Future Housing: No Difficulty Paying Gas/Electric Bills: No Difficulty Paying for Meds: No Currently Unemployed: No Education: High School Diploma/GED Difficulty w/ Childcare or Family Care: No Living arrangements: with family Additional living arrangements comments: CHILDREN Occupation/Education: occupation 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
[2023-12-29] MEDS: LACTATED RINGERS 1,000 ML 30 ML IV CONT (09:15)
[2023-12-29] MEDS: ACETAMINOPHEN 500 MG TABLET 1000 MG PO (09:17)
[2023-12-29 09:19] LABS: Glucose Point of Care 108 mg/dl (65-105)
[2023-12-29 10:00] VITALS: BP 117/76
[2023-12-29] MEDS: KETOROLAC 30 MG/ML VIAL (*BKC) IV PUSH (10:43)
[2023-12-29 10:55] VITALS: BP 109/71; PULSE 74; RESP 16; O2SAT 95
--- NOTE | 2023-12-29 10:56 | W.PM.PROC2 ---
Procedure Note - Detailed Date of Procedure 12/29/23 Pre-op Diagnosis menorrhagia Post-op Diagnosis Same Procedure Performed D&C hysteroscopy Surgeon Doretha Sifuentes MD Anesthesia MAC Findings uterus sounds to 10cm and appears grossly normal Description of Procedure The patient is taken to the operating room and placed under anesthesia in the dorsal lithotomy position. She was prepped and draped in usual sterile fashion. Hepzibah speculum was placed in the vagina and the cervix grasped on the anterior lip with a tenaculum. The uterus is sounded to 10cm. The diagnostic hysteroscope was placed and with no abnormalities noted it is removed. The sharp curette is used to curette the endometrium until a good uterine cry was noted in all areas. All instruments are removed. Sponge, needle, and instrument counts are correct per the OR staff. The patient was awakened from anesthesia and taken to recovery in stable condition. Estimated Blood Loss 5 Drains No Packing No Pathology Yes ( Endometrial shavings and curettings) Complications No immediate complications Condition Stable Disposition PACU
[2023-12-29 11:09] LABS: Glucose Point of Care 116 mg/dl (65-105)
[2023-12-29 11:25] VITALS: BP 118/68; PULSE 68; RESP 16
[2023-12-29 12:19] VITALS: BP 117/65; PULSE 68; RESP 16
== END 2023-12-29 12:24 | disposition home or self-care (01) ==
PROVIDERS: PCP Emergency Medicine; Visit Provider Obstetrics & Gynecology Gynecology
PROC: 0U5B8ZZ Destruction of Endometrium, Via Natural or Artificial Opening Endoscopic (ICD-10-PCS; CPT 58563; principal; 2023-12-29 10:30)
DX: N92.0 Excessive and frequent menstruation with regular cycle (principal); I10 Essential (primary) hypertension; E11.9 Type 2 diabetes mellitus without complications; E03.9 Hypothyroidism, unspecified; E28.2 Polycystic ovarian syndrome; E66.01 Morbid (severe) obesity due to excess calories; Z68.41 Body mass index [BMI] 40.0-44.9, adult; Z79.84 Long term (current) use of oral hypoglycemic drugs; Z98.890 Other specified postprocedural states
CPT/HCPCS: 58558; 82948; 88305; A9270; J1885; J2250; J2405; J2704; J3010; J7120

== ENCOUNTER 2024-07-08 11:01 | Outpatient (CLI) | payer OTHER, SELFPAY ==
--- NOTE | ~2024-07-08 | US_ITS ---
EXAMINATION: US thyroid DATE: 07/08/2024 11:53 INDICATION: Disorder of thyroid, unspecified. TECHNIQUE: Multiple ultrasound images of the thyroid were obtained. COMPARISON: Ultrasound 05/29/2023 FINDINGS: The right thyroid lobe measures 4.2 x 1.4 x 1.8 cm. The left thyroid lobe measures 7.0 x 2.7 x 3.0 c m. In the left thyroid lobe, there is a 5.3 cm mixed cystic and solid, hypoechoic, wider than tall n odule with smooth margin and macrocalcification (TI-RADS TR4), stable from 05/29/23. Biopsy on 3 was benign. In the superior left thyroid lobe, there is a 14 mm solid, hypoechoic, wider than tall nodule with smooth margin without echogenic foci (TR4), stable from 05/21/2023. IMPRESSION: 1. Stable thyroid nodules. Thyroid ultrasound is recommended in one year. Reviewed, dictated and finalized at location A. UNICATIONS TECHNICIAN
[2024-07-08 12:44] LABS: CRP 0.7 mg/dL (<1.0); Cholesterol 170 mg/dL (0-200); HDL Direct 54 mg/dL; Triglycerides 125 mg/dL (<150)
[2024-07-08 12:45] LABS: Rheumatoid Factor < 12.0 IU/ML (<12)
[2024-07-08 12:52] LABS: LDL Cholesterol Direct 95 mg/dL
[2024-07-08 12:53] LABS: Hemoglobin A1C 5.9 % (<5.7)
[2024-07-08 13:14] LABS: Thyroid Stimulating Hormone 0.781 uIU/mL (0.465-4.680); Vitamin D 25 Hydroxy 38.6 ng/mL
[2024-07-09 09:04] LABS: Prolactin 4.1 ng/mL
[2024-07-09 09:23] LABS: DHEA-Sulfate 162 mcg/dL (19-237)
[2024-07-12 18:29] LABS: Testosterone Total 14 ng/dL (2-45)
== END 2024-07-08 11:02 | disposition home or self-care (01) ==
PROVIDERS: PCP Emergency Medicine; Referring Provider Emergency Medicine; Visit Provider Obstetrics & Gynecology Gynecology
DX: E07.9 Disorder of thyroid, unspecified (principal); E28.2 Polycystic ovarian syndrome; E03.9 Hypothyroidism, unspecified; E55.9 Vitamin D deficiency, unspecified; E78.5 Hyperlipidemia, unspecified; M06.9 Rheumatoid arthritis, unspecified; M35.9 Systemic involvement of connective tissue, unspecified; R76.0 Raised antibody titer
CPT/HCPCS: 36415; 76536; 80061; 82306; 82627; 83036; 83498; 83525; 84146; 84403; 84443; 86038; 86039; 86140; 86430

== ENCOUNTER 2024-07-23 08:34 | Outpatient (CLI) | payer OTHER, SELFPAY ==
--- NOTE | 2024-07-26 10:36 | WPDNEUROLOGY ---
Neurology EEG Report General Information Date of Study: 07/23/24 TEST eeg
--- NOTE | 2024-07-26 10:39 | WPDNEUROLOGY ---
Neurology EEG Report General Information Date of Study: 07/23/24 TEST eeg DIAGNOSIS amnesia CONDITION OF RECORDING awake drowsy and sleep. EEG NUMBER [id number] CLINICAL HISTORY patient reports for several years she has been having cognitive issues and seems to be getting worse. EEG DESCRIPTION Basic resting occipital frequency consists of low to medium voltage 9 to 11 hertz per 2nd alpha admixed with low-voltage 15 to 18 hertz per 2nd beta activity. Low-voltage beta activity is seen diffusely admixed with waxing and waning posterior alpha rhythm. Hyperventilation produced normal and symmetrical buildup. Photic stimulation produced normal driving. Bilateral symmetrical sleep activity seen with admixture of alpha beta and theta activity evolving into bilateral symmetrical sleep spindles. Non paroxysmal. Nonfocal. Nonlateralizing. IMPRESSION Normal record. Clinical correlation recommended.
== END 2024-07-23 08:35 | disposition home or self-care (01) ==
PROVIDERS: PCP Emergency Medicine; Visit Provider Emergency Medicine
DX: R41.3 Other amnesia (principal)
CPT/HCPCS: 95816

== ENCOUNTER 2024-12-05 12:45 | Outpatient (CLI) | payer OTHER, SELFPAY ==
--- NOTE | ~2024-12-05 | MR_ITS ---
MRI of the brain Clinical History: Headache Technique: Axial and sagittal T1-weighted images were acquired. These were followed by axial T2-weigh wilber, diffusion weighted, gradient, and FLAIR images. Findings: No abnormal signal seen in the brain parenchyma. No acute infarct, intracranial hemorrhage, or mass lesion. Ventricles and subarachnoid spaces are unremarkable. Orbits are unremarkable. There is mild sinus dis ease in the bilateral maxillary sinuses. Remaining paranasal sinuses and mastoid air cells are clear. Major intracranial flow voids are intact. Sagittal midline structures are intact. IMPRESSION: Minimal sinus disease, otherwise unremarkable exam. Reviewed, dictated and finalized at location .
--- OUTSIDE RECORDS SUMMARY | 2024-12-05 12:48 | XMS_ITS | Clinical Summary ---
Author Organization [facility] Address [address] [place] [phone] Phone Care Team Providers Care Senior Behavioral Scientist Name Role Phone Unavailable Primary Care Provider Unavailabl e Social History Tobacco Use Types Packs/Day Years Used Date Smoking Tobacco: Never Assessed Comments Unknown Sex and Gender Information Value Date Recorded Sex Assigned at Not on file Legal Sex Female 11:10 AM [employer] Gender Identity Not on file Sexual Orientation Not on file Plan of Treatment Health Maintenance Due Date Last Done Comments DTAP/TDAP/TD VACCINES (1 - Tdap) 2004 HEPATITIS B VACCINES (1 of 3 - 19+ 3-dose series) 2004 HPV/Cotest (21-29) 2006 PAP SMEAR 2006 CERVICAL CANCER SCREENING 2015 HPV/Cotest (30-65) 2015 PAP SMEAR 2015 INFLUENZA VACCINE (#1) 2024 HPV VACCINES Aged Out No longer eligi ble based on patient's age to complete this topic PNEUMOCOCCAL VACCINE 0-49 YEARS Aged Out No longer eligible based on patient's age to complete this topic
--- OUTSIDE RECORDS SUMMARY | 2024-12-05 12:48 | XMS_ITS | Data Portability ---
Author Organization [place] [facility] [employer], Main Office Address [address] [place] [address] Care Team Providers Care Toolmaker Name Role Phone TARUNNBA NAYAN Primary Care Provider TARUNNBA NAYAN Referring Provider Assessment Encounter Date Assessment Date Assessment LastModified by Organization Details LastModified Time 12/26/2022 12/26/2022 This note is dictated and transcribed by [employer]. Procurement Assistant variances may occur. Despite proofreading, typographical errors may occur. Not available 12/26/2022 11:15:35 10/09/2023 10/09/2023 This note is dictated and transcribed by [employer]. Procurement Assistant variances may occur. Despite proofreading, typographical errors may occur. Occasional wrong-word or 'ctesh-o-bukm' substitutions may have occurred due to the inherent limitations of voice recording. Read the chart carefully and recognize, using context, where substitutions have occurred. Not available 10/09/2023 16:11:17 Plan of Treatment Reminders Order Date Submit Date Provider Last Modified By Organization Details Last Modified Time Details Appointments None record ed. Lab None record ed. Referral None record ed. Procedures None record ed. Surgeries None record ed. Imaging None record ed. Medication Orders None record ed. Patient TargetsNo targets recorded. Patient InstructionsNo instructions recorded. Reason for Referral None Reported. Problems Name Problem SNOMED Code Status Onset Date Resolution Date Notes Provider Name and Address Organization Details Recorded Time Paronychi a of toe of left foot 42882021306 410580 Active 2019 Not Available [facility] 3 20:55:53 Paronychi a of toe of right foot 79288381644 352987 Active 2018 Not Available [facility] 3 20:55:53 Lipoma of lower leg 820659937 Active 2019 Not Available [facility] 3 20:55:53 Headache 91711266 Active 2018 Not Available [facility] 3 20:55:53 Anemia 911033746 Active 2018 Not Available [facility] 3 20:55:54 Pain of toe of right foot 74382200788 9101 Completed 201810/25/2019 Not Available [facility] 3 20:55:54 Migraine 79516515 Active 2018 Not Available [facility] 3 20:55:54 Hypertens rajiv disorder 67842980 Active 2018 Not Available [facility] 3 20:55:54 Notes:non-healing wound/sore Problem Notes None recorded. Procedures Surgical History Date Name Laterality Status Provider Name and Address Organization Details Recorded Time 4 Toenail avulsion completed Dagobetro Perera DPM [address], [address], [address], [employer] [facility] 10/09/2023 16:10:29 3 Nail Debridement completed Dagoberto Perera DPM [address], [address], [place], [address], [employer] [facility] 08/05/2023 14:43:27 3 Nail Debridement completed Dagoberto Perera DPM [address], [address] [facility], [place], [address], [employer] [facility] 12/26/2022 11:15:27 Imaging Results None recorded. Procedure Notes None recorded. Medical Equipment None Reported. Allergies Allergen ID Allergen Name Allergen Category Reaction Reaction Severity Criticality Documentation Date Start Date Code Code System Note Provider Name and Address Organization Details Recorded Time 68802 nifedipin e medicatio n Not available Not available Not available 10/30/2022 7417 RxNorm flush ed skin, hot and dizzy Not Available [facility] 3 20:56:54 Medications Name Sig Start Date Stop Date Status Note LastModified by Organization Details LastModified Time celecoxib 200 mg capsule TAKE 1 CAPSULE BY MOUTH DAILY active Not Available Not Available No t Available nystatin 100,000 unit/mL oral suspension SHAKE LIQUID AND TAKE 5 ML BY MOUTH FOUR TIMES DAILY active Not Available Not Available No t Available clindamycin HCl 300 mg capsule TK 1 C PO Q 6 H active Not Available Not Available No t Available Concerta 18 mg tablet,exte nded release TAKE 1 TABLET BY MOUTH EVERY MORNING active Not Available Not Available No t Available triamcinolo ne acetonide 0.5 % topical cream APPLY TO THE AFFECTED AREA TWICE DAILY FOR 7 DAYS active Not Available Not Available No t Available azithromyci n 250 mg tablet active Not Available Not Available Not Available hydrocodone 5 mg-acetamin ophen 325 mg tablet TAKE 1 TO 2 TABLETS BY MOUTH EVERY 6 HOURS NEEDED FOR PAIN active Not Available Not Available No t Available naltrexone 50 mg tablet TK 1 T PO D active Not Available Not Available No t Available lisinopril 20 mg tablet 01/05 completed Not Available Not Available Not Available prednisone 20 mg tablet TAKE 1 TABLET BY MOUTH DAILY active Not Available Not Available No t Available dextroamphe tamine-amph etamine 10 mg tablet TAKE 1 TABLET BY MOUTH DAILY active Not Available Not Available No t Available nifedipine ER 30 mg tablet,exte nded release TK 1 T PO D 10/25 completed Not Available Not Available Not Available amlodipine 5 mg tablet TAKE 1 TABLET BY MOUTH EVERY DAY active Not Available Not Available No t Available sulfamethox azole 800 mg-trimetho prim 160 mg tablet TAKE 1 TABLET BY MOUTH TWICE DAILY active Not Available Not Available No t Available levothyroxi ne 25 mcg tablet TAKE 1 TABLET BY MOUTH EVERY DAY active Not Available Not Available No t Available ketorolac 10 mg tablet TAKE 1 TABLET BY MOUTH EVERY 6 HOURS FOR 4 DAYS active Not Available Not Available No t Available ketorolac 0.5 % eye drops INT 1 GTT IN OS BID active Not Available Not Available No t Available oxycodone-a cetaminophe n 5 mg-325 mg tablet TAKE 1 TO 2 TABLETS BY MOUTH EVERY 6 HOURS NEEDED FOR PAIN active Not Available Not Available No t Available bupropion HCl 100 mg tablet TK 1 T PO D active Not Available Not Available No t Available alprazolam 0.5 mg tablet TAKE 1 TABLET BY MOUTH TWICE DAILY NEEDED FOR ANXIETY active Not Available Not Available No t Available famotidine 20 mg tablet TAKE 1 TABLET BY MOUTH DAILY active Not Available Not Available No t Available amlodipine 10 mg tablet TK 1 T PO D 10/25 completed Not Available Not Available Not Available benzonatate 100 mg capsule TAKE 1 CAPSULE BY MOUTH THREE TIMES DAILY active Not Available Not Available No t Available cephalexin 500 mg capsule Take 1 capsule every 6 hours by oral route as directed for 7 days. active Not Available Not Available No t Available pantoprazol e 40 mg tablet,lila yed release TK 1 T PO D active Not Available Not Available No t Available hydrochloro thiazide 12.5 mg capsule active Not Available Not Available Not Available fluoxetine 10 mg capsule 01/05 completed Not Available Not Available Not Available Banophen 25 mg capsule TAKE ONE CAPSULE BY MOUTH AT BEDTIME NEEDED FOR ITCHING active Not Available Not Available No t Available hydrochloro thiazide 25 mg tablet TAKE 1 TABLET BY MOUTH DAILY active Not Available Not Available No t Available mupirocin 2 % topical ointment APPLY A SMALL AMOUNT TO THE AFFECTED AREA left great toe BY TOPICAL ROUTE 3 TIMES PER DAY active Not Available Not Available No t Available metoprolol succinate ER 25 mg tablet,exte nded release 24 hr TAKE 1 TABLET BY MOUTH EVERY DAY active Not Available Not Available No t Available ergocalcife rol (vitamin D2) 1,250 mcg (50,000 unit) capsule TAKE 1 CAPSULE BY MOUTH EVERY WEEK active Not Available Not Available No t Available diazepam 10 mg tablet active Not Available Not Available No t Available levofloxaci n 750 mg tablet TAKE 1 TABLET BY MOUTH EVERY DAY active Not Available Not Available No t Available methylpredn isolone 4 mg tablets in a dose pack FOLLOW PACKAGE DIRECTION S active Not Available Not Available No t Available albuterol sulfate HFA 90 mcg/actuati on aerosol inhaler INHALE 2 TO 4 PUFFS BY MOUTH EVERY 4 TO 6 HOURS NEEDED AND 30 MINUTES PRIOR TO SLEEP OR EXCERTION active Not Available Not Available No t Available ferrous sulfate 325 mg (65 mg iron) tablet,lila yed release active Not Available Not Available Not Available fluoxetine 20 mg capsule 01/05 completed Not Available Not Available Not Available fluticasone propionate 50 mcg/actuati on nasal spray,suspe nsion SHAKE LIQUID AND USE 1 SPRAY IN EACH NOSTRIL TWICE DAILY active Not Available Not Available No t Available metformin ER 500 mg tablet,exte nded release 24 hr TAKE 2 TABLETS BY MOUTH TWICE DAILY active Not Available Not Available No t Available clotrimazol e 1 % topical cream APPLY TOPICALLY TO THE AFFECTED AREA TWICE DAILY FOR 10 DAYS active Not Available Not Available No t Available naproxen 500 mg tablet TAKE 1 TABLET BY MOUTH TWICE DAILY active Not Available Not Available No t Available amoxicillin 875 mg-potassiu m clavulanate 125 mg tablet TAKE 1 TABLET BY MOUTH TWICE DAILY active Not Available Not Available No t Available amoxicillin 500 mg-potassiu m clavulanate 125 mg tablet TK 1 T PO Q 12 H FOR 7 DAYS UTD 10/25 completed Not Available Not Available Not Available Concerta 27 mg tablet,exte nded release TK 1 T PO QAM active Not Available Not Available No t Available etonogestre l 0.12 mg-ethinyl estradiol 0.015 mg/24 hr vaginal ring INSERT 1 RING VAGINALLY ONCE A MONTH. active Not Available Not Available No t Available escitalopra m 10 mg tablet 01/05 completed Not Available Not Available Not Available ezetimibe 10 mg tablet TAKE 1 TABLET BY MOUTH DAILY active Not Available Not Available No t Available cyclobenzap rine 5 mg tablet TAKE 1 TABLET BY MOUTH THREE TIMES DAILY active Not Available Not Available No t Available FeroSul 325 mg (65 mg iron) tablet TAKE 1 TABLET BY MOUTH TWICE DAILY active Not Available Not Available No t Available Slynd 4 mg (28) tablet TAKE 1 TABLET BY MOUTH DAILY active Not Available Not Available No t Available Vitals Date Recorded Body height Provider Name an d Address Organization Details Last Updated DateTime 05/30/2022 175.26 cm Not Available [facility] 3 20:55:43 Date Recorded Body height Provider Name an d Address Organization Details Last Updated DateTime 06/13/2022 175.26 cm Not Available [facility] 3 20:55:43 Date Recorded Body height Heart rate Respiratory rate Oxygen saturation Oxygen saturation in Arterial blood by Pulse oximetry Systolic blood pressure Diastolic blood pressure Provider Name and Address Organization Details Last Updated DateTime 3 175.26 cm 80 /min 14 /min 98 % 98 % 140 mm[Hg] 90 mm[Hg] Tran Isabel [facility] [employer] [facility] 3 10:43:42 Date Recorded Body height Heart rate Respiratory rate Oxygen saturation Oxygen saturation in Arterial blood by Pulse oximetry Systolic blood pressure Diastolic blood pressure Provider Name and Address Organization Details Last Updated DateTime 3 175.26 cm 85 /min 14 /min 99 % 99 % 132 mm[Hg] 95 mm[Hg] Tran [employer] [place] [employer] [facility] [employer] [facility] 3 11:15:22 Date Recorded Body height Heart rate Respiratory rate Body temperature Oxygen saturation Oxygen saturation in Arterial blood by Pulse oximetry Body mass index (BMI) Body weight Systolic blood pressure Diastolic blood pressure Provider Name and Address Organization Details Last Updated DateTime 4 175.26 cm 68 /min 14 /min 98.1 [degF] 98 % 98 % 41.3 kg/m2 459976. 86 g 130 mm[Hg] 80 mm[Hg] Tova Lisa [place] [facility] [employer] [facility] 4 14:56:28 Social History None recorded. Functional Status None recorded. Mental Status None recorded. Family History Nothing Reported Notes:diabetes - grandmother , high blood pressure - grandmother, heart disease - grandmother, cancer - grandfather Medical History No medical history recorded. Gynecological HistoryNo gynecological history recorded. Obstetrics History GPAL:G 0 P 0 0 0 0 Past Encounters Encounter ID Performer Location Encounter Start Date Encounter Closed Date Diagnosis/Indication Diagnosis SNOMED-CT Code Diagnosis ICD10 Code Diagnosis Note [id number] [facility] [address], [address] [address] 03/08/2021 00:00:00 03/08/2021 13:56:55 [id number] [facility] [place] [address] [place] [address], [address] [address] 03/22/2021 00:00:00 03/22/2021 16:42:38 [id number] [facility] [place] [address] [place] [address], [address] [address] 06/07/2021 00:00:00 06/07/2021 12:45:22 [id number] [facility] [place] [address] [place] [address], [address] [address] 06/15/2021 00:00:00 06/15/2021 14:15:22 [id number] [facility] [place] [address], [facility] [address] [place] [address] 06/28/2021 00:00:00 06/28/2021 12:23:55 [id number] [facility] [place] [address], [facility] [address] [place] [address] 11/01/2021 00:00:00 11/01/2021 10:45:45 [id number] [facility] [place] [address], [facility] [address] [place] [address] 04/18/2022 00:00:00 04/18/2022 13:36:18 [id number] [facility] [place] [address], [address] [address] 05/23/2022 00:00:00 05/23/2022 12:02:04 [id number] [facility] [place] [address] [facility], [address] [address] 05/30/2022 00:00:00 05/30/2022 15:39:29 [id number] [facility] [place] [address] [facility], [address] [address] 06/13/2022 00:00:00 06/13/2022 11:45:02 [id number] Dagoberto Perera DPM [facility] [place] [address] [facility] [address] [place] [address] 12/26/2022 10:39:15 12/26/2022 11:23:15 Paronychia of toe of left foot 2267314274 4437399 L03.032 Successful partial chemical matrixecto my lateralcon tinued regrowth to the medial with painslant back procedure performed in the medial corner todayArea cleaned with ChloraPrep Band-Aid appliedCon tinue daily dressings with topical antibiotic ointment over-the-c ounter, daily soaking with Epson saltfollow -up in 1 week if continues to be problemati cwill reconvene in 6 months if continued issues we will plan surgical excision matrixecto my of both great toe medial corners [id number] Dagoberto Perera DPM [facility] [place] [address], [address] [place] [address] 08/05/2023 11:00:28 08/06/2023 16:50:44 Paronychia of toe of left foot 1766093436 7159576 L03.032 medial great toenail debrided without incidentwo und care instructio ns reviewedtr eatment options reviewedpa tient denies wanting any further surgery at this timefollow -up as needed [id number] Dagoberto Perera DPM [facility] [place] [address] [facility] [address] [place] [address] 10/09/2023 14:37:31 10/14/2023 13:25:15 Paronychia of toe of left foot 8667603817 2936789 L03.032 medial great toenail debrided without incidentwo und care instructio ns reviewedtr eatment options reviewedpa tient denies wanting any further surgery at this timefollow -up as needed Health Concerns Section Related Observation LastModified by Organization Detai ls LastModified Time None Recorded Concern Status LastModified by Organization Details LastModified Time None Recorded Advance Directives Directive None Recorded Payers Encounter Date Sequence Insurance Name Policy Number Policy Bates Covered Member ID Bates Member ID Guarantor Name 12/26/2022 1 [facility] ON OR AFTER 03/01/21 (MEDICAID REPLACEMENT - HMO) Theresa Dutta [id number] Theresa Dutta 08/05/2023 1 [facility] ON OR AFTER 03/01/21 (MEDICAID REPLACEMENT - HMO) Theresa Dutta [id number] Theresa Dutta 10/09/2023 1 [facility] ON OR AFTER 03/01/21 (MEDICAID REPLACEMENT - HMO) Theresa Dutta [id number] Theresa Dutta Notes Date Note Type Note Provider Name and Address Organization Details Recorded Time 12/26/2022 text/html . Patient is a 37-year-old female who returns the office for follow-up on paronychia of the left great toe medial corner. Patient states that she continues to develop recurrent pain and infection to the area. Patient states that she has a sharp pain to the area. Patient states she did attempt to cut the nail corner but was unsuccessful. Patient denies any redness or drainage but states it is been increasingly getting more tender. Patient denies any fever, chills, nausea vomiting. Patient has failed chemical matrixectomy and will likely benefit from excisional matrixectomy in the operating room for this condition secondary to the continued recurrent growth of the nail corner despite re-attempt at chemical matrixectomy. Patient understands her options and at this time denies wanting any surgery but if continues to be problematic will rediscuss in the future. Patient denies any other complaints. Dagoberto Perera DPM [address], [employer], [place], [address], [employer] 12/26/2022 11:18:31 08/05/2023 text/html . Patient is a 37-year-old female who returns the office for recurrent ingrown toenail to the medial left great toe. Patient states she has had sharp pain to the area. Patient denies any redness or drainage. Patient states she did try to clip the area out but was unsuccessful. Patient has had previous partial matrixectomy which has failed and continues have recurrent nail growth to the corner. I discussed options and repeating a chemical matrixectomy to the nail corner versus surgically removing the matrix to the medial corner which the patient states at this time she does not want any further procedures and will call if she decides to change her mind. Dagoberto Perera DPM [address], [address] [email or web address], [place], [address], [employer] 08/05/2023 14:44:23 10/09/2023 text/html Patient is a 38-year-old female who returns the office for follow-up on recurrent ingrown toenail to the left great toe. Patient states she has developed redness and swelling to the medial corner of the left great toenail. Patient states when she walks she has increased pain. Patient states she is also starting to develop pain laterally at the same toe. Patient denies any fever, chills, nausea vomiting. Patient denies any other complaints. Dagoberto Perera DPM [address], [address], [place], [address], [employer] [facility] 10/09/2023 16:12:59 OBGyn Episode No OBEpisode recorded.
--- OUTSIDE RECORDS SUMMARY | 2024-12-05 12:49 | XMS_ITS | Data Portability ---
Author Organization ALEXY SEKOUZev Phan Address [address] [place] [address] Care Team Providers Care Component Assembler Name Role Phone ROSARIOROM VELEZ Referring Provider [phone] Assessment No assessment recorded. Plan of Treatment Reminders Order Date Submit Date Provider Last Modified By Organization Details Last Modified Time Details Appointments None recorded. Lab vitamin B12, serum 2014 015 MORALES GANN, Rowena Gallardo, [facility] [address], [place], [address], 5 08:20:41 HbA1c (hemoglobin A1c), blood 2014 015 MORALES GANN, Rowena Gallardo, [facility] [address], [place], [address], 5 13:21:22 glucose tolerance test, post-75G, 3 specimens 2014 015 MORALES GANN, Rowena Gallardo, [facility] [address], [place], [address], 5 13:21:22 CBC w/ auto diff 2014 015 MORALES GANN, Rowena eric Gallardo, [facility] [address], [place], [address], 5 13:21:20 CMP, serum or plasma 2014 015 Rowena KENDALL eric Gallardo, [facility] [address], [place], [address], 5 13:21:21 [facility]inalysis, complete 2014 [facility] [address] [place] [address], [address], [place], [address], 5 13:21:21 lipid panel, serum 2014 015 [facility] [address] [place] [address], [address], [place], [address], 5 13:21:19 thyroid panel, serum 2014 015 [facility], [address] [place] [address], [address], [place], [address], 5 13:21:23 Referral nutritionis t/dietitian referral - Obesity 2014 015 khadar [facility], [address] [place], [address], 5 09:38:34 counseling referral 2014 015 khadar [facility] (), [address] [place], [address], 5 09:36:39 psychiatris t referral - Depression & Anxiety 2014 015 [facility] (), [address] [place], [address], 5 09:36:39 Procedures None recorded. Surgeries None recorded. Imaging ultrasound, thyroid - Thyroid ultrasound 2014 015 MORALES Not available 5 14:44:15 Medication Orders Imitrex 100 mg tablet 2014 015 [id number], [address] [facility], [place], [place], [id number], 15:04:49 Patient TargetsNo targets recorded. 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 Refer ral for Impaired fasting glycemia Obesity Referring Physician: Patricia Minor, Internal Medicine, Encounter Date: 01/26/2015 Counseling Referral for Depr essive disorder Referring Physician: Patricia Minor Internal Medicine, Encounter Date: 01/26/2015 Psychiatrist Referral for De pressive disorder Depression & Anxiety Referring Physician: Patricia Minor Internal Medicine, Encounter Date: 01/26/2015 Results Created Date Observation Date Name Description Value Unit Range Abnormal Flag Note LastModifiedBy Organization Detail LastModifiedTime 01/11/20 15 01/11/2015 lipid panel , serum cholesterol, total 166 mg/dL 100-19 9 Not Available [facility] ([facility]) [address] [facility], [place], [address], 01/11/2015 13:21:19 01/11/20 15 01/11/2015 lipid panel , serum triglyceride s 151 mg/dL 0-149 high Not Available [facility] ([facility]) [address] [place], [address], 01/11/2015 13:21:19 01/11/20 15 01/11/2015 lipid panel , serum LDL chol. (direct) 107 mg/dL 0-99 high Not Available [facility] ([facility]) [address] [place], [address], 01/11/2015 13:21:19 01/11/20 15 01/11/2015 lipid panel , serum HDL cholesterol 40 mg/dL >39 ACCOR DING TO ATP-I II GUIDE LINES , HDL-C >59 MG/DL IS CONSI DERED A NEGAT LAURA RISK FACTO R FOR CHD. Not Available [facility] ([facility]) [address] [facility], [place], [address], 01/11/2015 13:21:19 01/11/20 15 01/11/2015 lipid panel , serum VLDL cholesterol amberly 30 mg/dL 5-40 Not Available [facility] ([facility]) [address] [facility], [place], [address], 01/11/2015 13:21:19 01/11/20 15 01/11/2015 lipid panel , serum LDL cholesterol calc 96 mg/dL 0-99 Not Available [facility] ([facility]) [address] [facility], [place], [address], 01/11/2015 13:21:19 01/11/2001/11/2015 lipid panel , serum LDL/HDL ratio 2.4 ratio _unit s 0.0-3. 2 LDL/H DL RATIO MEN WOMEN 1/2 AVG.R ISK 1.0 1.5 AVG.R ISK 3.6 3.2 2X AVG.R ISK 6.2 5.0 3X AVG.R ISK 8.0 6.1 Not Available [facility] ([facility]) [address] [facility], [place], [address], 01/11/2015 13:21:19 01/11/20 15 01/10/2015 CBC w/ auto diff WBC 10.0 x10e3 /uL 3.4-10 .8 Not Available [facility] ([facility]) [address] [facility], [place], [address], 01/11/2015 13:21:20 01/11/20 15 01/10/2015 CBC w/ auto diff RBC 5.02 x10e6 /uL 3.77-5 .28 Not Available [facility] ([facility]) [address] [place], [address], 01/11/2015 13:21:20 01/11/20 15 01/10/2015 CBC w/ auto diff hemoglobin 11.2 g/dL 11.1-1 5.9 Not Available [facility] ([facility]) [address] [place], [address], 01/11/2015 13:21:20 01/11/20 15 01/10/2015 CBC w/ auto diff hematocrit 36.2 % 34.0-4 6.6 Not Available [facility] ([facility]) [address] [place], [address], 01/11/2015 13:21:20 01/11/20 15 01/10/2015 CBC w/ auto diff MCV 72 fL 79-97 low Not Available [facility] ([facility]) [address] [place], [address], 01/11/2015 13:21:20 01/11/20 15 01/10/2015 CBC w/ auto diff MCH 22.3 pg 26.6-3 3.0 low Not Available [facility] ([facility]) [address] [place], [address], 01/11/2015 13:21:20 01/11/20 15 01/10/2015 CBC w/ auto diff MCHC 30.9 g/dL 31.5-3 5.7 low Not Available [facility] ([facility]) [address] [place], [address], 01/11/2015 13:21:20 01/11/20 15 01/10/2015 CBC w/ auto diff RDW 14.8 % 12.3-1 5.4 Not Available [facility] ([facility]) [address] [place], [address], 01/11/2015 13:21:20 01/11/20 15 01/10/2015 CBC w/ auto diff platelets 281 x10e3 /uL 150-37 9 Not Available [facility] ([facility]) [address] [place], [address], 01/11/2015 13:21:20 01/11/20 15 01/10/2015 CBC w/ auto diff neutrophils 64 % Not Available [facility] ([facility]) [address] [place] [address], [address], 01/11/2015 13:21:20 01/11/20 15 01/10/2015 CBC w/ auto diff lymphs 30 % Not Available [facility] ([facility]) [address] [place] [address], [address], 01/11/2015 13:21:20 01/11/20 15 01/10/2015 CBC w/ auto diff monocytes 5 % Not Available [facility] ([facility]) [address] [place] [address], [address], 01/11/2015 13:21:20 01/11/20 15 01/10/2015 CBC w/ auto diff eos 1 % Not Available [facility] ([facility]) [address] [place] [address], [address], 01/11/2015 13:21:20 01/11/20 15 01/10/2015 CBC w/ auto diff basos 0 % Not Available [facility] ([facility]) [address] [place] [address], [address], 01/11/2015 13:21:20 01/11/20 15 01/10/2015 CBC w/ auto diff neutrophils (absolute) 6.4 x10e3 /uL 1.4-7. 0 Not Available [facility] ([facility]) [address] [place] [address], [address], 01/11/2015 13:21:20 01/11/20 15 01/10/2015 CBC w/ auto diff lymphs (absolute) 3.0 x10e3 /uL 0.7-3. 1 Not Available [facility] ([facility]) [address] [place], [address], 01/11/2015 13:21:20 01/11/20 15 01/10/2015 CBC w/ auto diff monocytes(ab solute) 0.5 x10e3 /uL 0.1-0. 9 Not Available [facility] ([facility]) [address] [place], [address], 01/11/2015 13:21:20 01/11/20 15 01/10/2015 CBC w/ auto diff eos (absolute) 0.1 x10e3 /uL 0.0-0. 4 Not Available [facility] ([facility]) [address] [facility], [place], [address], 01/11/2015 13:21:20 01/11/20 15 01/10/2015 CBC w/ auto diff baso (absolute) 0.0 x10e3 /uL 0.0-0. 2 Not Available [facility] ([facility]) [address] [place], [address], 01/11/2015 13:21:20 01/11/20 15 01/10/2015 CBC w/ auto diff immature granulocytes 0 % Not Available [facility] ([facility]) [address] [place], [address], 01/11/2015 13:21:20 01/11/20 15 01/10/2015 CBC w/ auto diff immature grans (abs) 0.0 x10e3 /uL 0.0-0. 1 Not Available [facility] ([facility]) [address] [place], [address], 01/11/2015 13:21:20 01/11/20 15 01/11/2015 CMP, serum or plasm a glucose, serum 108 mg/dL 65-99 high Not Available [facility] ([facility]) [address] [place], [address], 01/11/2015 13:21:20 01/11/20 15 01/11/2015 CMP, serum or plasm a BUN 10 mg/dL 6-20 Not Available [facility] ([facility]) [address] [place], [address], 01/11/2015 13:21:20 01/11/20 15 01/11/2015 CMP, serum or plasm a creatinine, serum 0.72 mg/dL 0.57-1 .00 Not Available [facility] ([facility]) [address] [place], [address], 01/11/2015 13:21:20 01/11/20 15 01/11/2015 CMP, serum or plasm a eGFR if nonafricn AM 114 mL/mi n/1.7 3 >59 Not Available [facility] ([facility]) [address] [place], [address], 01/11/2015 13:21:20 01/11/20 15 01/11/2015 CMP, serum or plasm a eGFR if africn AM 131 mL/mi n/1.7 3 >59 Not Available [facility] ([facility]) [address] [place], [address], 01/11/2015 13:21:20 01/11/20 15 01/11/2015 CMP, serum or plasm a BUN/creatini ne ratio 14 8-20 Not Available [facility] ([facility]) [address] [place], [address], 01/11/2015 13:21:20 01/11/20 15 01/11/2015 CMP, serum or plasm a sodium, serum 140 mmol/ L 134-14 4 Not Available [facility] ([facility]) [address] [place], [address], 01/11/2015 13:21:20 01/11/20 15 01/11/2015 CMP, serum or plasm a potassium, serum 4.5 mmol/ L 3.5-5. 2 Not Available [facility] ([facility]) [address] [place], [address], 01/11/2015 13:21:20 01/11/20 15 01/11/2015 CMP, serum or plasm a chloride, serum 102 mmol/ L 97-108 Not Available [facility] ([facility]) [address] [place], [address], 01/11/2015 13:21:20 01/11/20 15 01/11/2015 CMP, serum or plasm a carbon dioxide, total 22 mmol/ L 18-29 Not Available [facility] ([facility]) [address] [place], [address], 01/11/2015 13:21:20 01/11/20 15 01/11/2015 CMP, serum or plasm a calcium, serum 9.2 mg/dL 8.7-10 .2 Not Available [facility] ([facility]) [address] [place], [address], 01/11/2015 13:21:20 01/11/20 15 01/11/2015 CMP, serum or plasm a protein, total, serum 6.4 g/dL 6.0-8. 5 Not Available [facility] ([facility]) [address] [place], [address], 01/11/2015 13:21:20 01/11/2001/11/2015 CMP, serum or plasm a albumin, serum 4.1 g/dL 3.5-5. 5 Not Available [facility] ([facility]) [address] [place], [address], 01/11/2015 13:21:20 01/11/2001/11/2015 CMP, serum or plasm a globulin, total 2.3 g/dL 1.5-4. 5 Not Available [facility] ([facility]) [address] [place], [address], 01/11/2015 13:21:20 01/11/20 15 01/11/2015 CMP, serum or plasm a A/G ratio 1.8 1.1-2. 5 Not Available [facility] ([facility]) [address] [place], [address], 01/11/2015 13:21:20 01/11/20 15 01/11/2015 CMP, serum or plasm a bilirubin, total 0.2 mg/dL 0.0-1. 2 Not Available [facility] ([facility]) [address] [place], [address], 01/11/2015 13:21:20 01/11/20 15 01/11/2015 CMP, serum or plasm a alkaline phosphatase, S 73 IU/L 39-117 Not Available [facility] ([facility]) [address] [place], [address], 01/11/2015 13:21:20 01/11/20 15 01/11/2015 CMP, serum or plasm a AST (SGOT) 13 IU/L 0-40 Not Available [facility] ([facility]) [address] [place], [address], 01/11/2015 13:21:20 01/11/20 15 01/11/2015 CMP, serum or plasm a ALT (SGPT) 14 IU/L 0-32 Not Available [facility] ([facility]) [address] [place], [address], 01/11/2015 13:21:20 01/11/20 15 01/11/2015 urina lysis , compl ete specific gravity 1.021 1.005- 1.030 Not Available [facility] ([facility]) [address] [place], [address], 01/11/2015 13:21:21 01/11/20 15 01/11/2015 urina lysis , compl ete pH 6.0 5.0-7. 5 Not Available [facility] ([facility]) [address] [facility], [place], [address], 01/11/2015 13:21:21 01/11/20 15 01/11/2015 urina lysis , compl ete urine-color YELLOW yellow Not Available [facility] ([facility]) [address] [facility], [place], [address], 01/11/2015 13:21:21 01/11/20 15 01/11/2015 urina lysis , compl ete appearance CLEAR clear Not Available [facility] ([facility]) [address] [facility], [place], [address], 01/11/2015 13:21:21 01/11/20 15 01/11/2015 urina lysis , compl ete WBC esterase NEGATI VE negati ve Not Available [facility] ([facility]) [address] [facility], [place], [address], 01/11/2015 13:21:21 01/11/20 15 01/11/2015 urina lysis , compl ete protein NEGATI VE negati ve/tra ce Not Available [facility] ([facility]) [address] [facility], [place], [address], 01/11/2015 13:21:21 01/11/20 15 01/11/2015 urina lysis , compl ete glucose NEGATI VE negati ve Not Available [facility] ([facility]) [address] [facility], [place], [address], 01/11/2015 13:21:21 01/11/20 15 01/11/2015 urina lysis , compl ete ketones NEGATI VE negati ve Not Available [facility] ([facility]) [address] [place], [address], 01/11/2015 13:21:21 01/11/20 15 01/11/2015 urina lysis , compl ete occult blood TRACE negati ve abnormal Not Available [facility] ([facility]) [address] [place], [address], 01/11/2015 13:21:21 01/11/20 15 01/11/2015 urina lysis , compl ete bilirubin NEGATI VE negati ve Not Available [facility] ([facility]) [address] [facility], [place], [address], 01/11/2015 13:21:21 01/11/20 15 01/11/2015 urina lysis , compl ete urobilinogen ,semi-qn 0.2 mg/dL 0.0-1. 9 Not Available [facility] ([facility]) [address] [place], [address], 01/11/2015 13:21:21 01/11/20 15 01/11/2015 urina lysis , compl ete nitrite, urine NEGATI VE negati ve Not Available [facility] ([facility]) [address] [facility], [place], [address], 01/11/2015 13:21:21 01/11/20 15 01/11/2015 urina lysis , compl ete microscopic examination SEE BELOW: MICRO SCOPI C WAS INDIC ATED AND WAS PERFO RMED. Not Available [facility] ([facility]) [address] [facility], [place], [address], 01/11/2015 13:21:21 01/11/20 15 01/11/2015 urina lysis , compl ete WBC 0-5 /hpf 0 - 5 Not Available [facility] ([facility]) [address] [facility], [place], [address], 01/11/2015 13:21:21 01/11/20 15 01/11/2015 urina lysis , compl ete RBC NONE SEEN /hpf 0 - 2 Not Available [facility] ([facility]) [address] [facility], [place], [address], 01/11/2015 13:21:21 01/11/20 15 01/11/2015 urina lysis , compl ete epithelial cells (non renal) 0-10 /hpf 0 - 10 Not Available [facility] ([facility]) [address] [facility], [place], [address], 01/11/2015 13:21:21 01/11/20 15 01/11/2015 urina lysis , compl ete mucus threads PRESEN T not estab. Not Available [facility] ([facility]) [address] [place], [address], 01/11/2015 13:21:21 01/11/20 15 01/11/2015 urina lysis , compl ete bacteria FEW none seen/f ew Not Available [facility] ([facility]) [address] [facility], [place], [address], 01/11/2015 13:21:21 01/11/20 15 01/11/2015 gluco se macey ance test, post- 75G, 3 speci mens glucose, fasting 110 mg/dL 65-99 high Not Available [facility] ([facility]) [address] [place], [address], 01/11/2015 13:21:22 01/11/20 15 01/11/2015 gluco se macey ance test, post- 75G, 3 speci mens glucose, 1/2 hour TNP TEST NOT PERFO RMED Not Available [facility] ([facility]) [address] [place], [address], 01/11/2015 13:21:22 01/11/20 15 01/11/2015 gluco se macey ance test, post- 75G, 3 speci mens glucose, 1 hour 186 mg/dL 65-199 Not Available [facility] ([facility]) [address] [place], [address], 01/11/2015 13:21:22 01/11/20 15 01/11/2015 gluco se macey ance test, post- 75G, 3 speci mens glucose, 1 1/2 hour TNP TEST NOT PERFO RMED Not Available [facility] ([facility]) [address] [place], [address], 01/11/2015 13:21:22 01/11/20 15 01/11/2015 gluco se macey ance test, post- 75G, 3 speci mens glucose, 2 hour 161 mg/dL 65-139 high Not Available [facility] ([facility]) [address] [place], [address], 01/11/2015 13:21:22 01/11/20 15 01/11/2015 gluco se macey ance test, post- 75G, 3 speci mens glucose, 3 hour TNP TEST NOT PERFO RMED Not Available [facility] ([facility]) [address] [place], [address], 01/11/2015 13:21:22 01/11/20 15 01/11/2015 gluco se macey ance test, post- 75G, 3 speci mens glucose, 4 hour TNP TEST NOT PERFO RMED Not Available [facility] ([facility]) [address] [place], [address], 01/11/2015 13:21:22 01/11/20 15 01/11/2015 gluco se macey ance test, post- 75G, 3 speci mens glucose, 5 hour TNP TEST NOT PERFO RMED Not Available [facility] ([facility]) [address] [place], [address], 01/11/2015 13:21:22 01/11/20 15 01/11/2015 gluco se macey ance test, post- 75G, 3 speci mens glucose, 6 hour TNP TEST NOT PERFO RMED Not Available [facility] ([facility]) [address] [place], [address], 01/11/2015 13:21:22 01/11/20 15 01/11/2015 HbA1c (hemo globi n A1c), blood hemoglobin A1C 6.4 % 4.8-5. 6 high . INCRE ASED RISK FOR DIABE DANYELLE: 5.7 - 6.4 DIABE DANYELLE: >6.4 GLYCE SOLA CONTR OL FOR ADULT S WITH DIABE DANYELLE: <7.0 Not Available [facility] ([facility]) [address] [facility], [place], [address], 01/11/2015 13:21:22 01/11/20 15 01/11/2015 thyro id panel , serum TSH 1.180 uIU/m L 0.450- 4.500 Not Available [facility] ([facility]) [address] [facility], [place], [address], 01/11/2015 13:21:23 02/11/20 15 02/11/2015 vitam in B12, serum vitamin B12 473 pg/mL 211-94 6 Not Available [facility] ([facility]) [address] [place], [address], 02/11/2015 08:20:41 01/25/20 15 01/24/2015 ultra sound , thyro id No observ ation record ed. [facility] ([facility]) [address] [place], [address], 01/26/2015 10:54:33 01/25/20 15 01/24/2015 ultra sound , thyro id No observ ation record ed. [facility] ([facility]) [address] [place], [address], 01/26/2015 10:54:33 03/01/20 15 03/01/2015 ultra sound , thyro id No observ ation record ed. [facility] ([facility]) [address] [place], [address], 03/01/2015 13:41:51 01/17/20 16 01/17/2016 ultra sound , thyro id No observ ation record ed. [facility] [address] [place], [address], 01/17/2016 20:17:29 12/26/19 18 12/25/2017 US, neck, soft tissu e No observ ation record ed. [facility] ([facility]) [address] [place], [address], 12/25/2017 20:07:16 Result Notes None recorded. Problems Name Problem SNOMED Code Status Onset Date Resolution Date Notes Provider Name and Address Organization Details Recorded Time Obesity 801748513 Active Patricia Minor MD Attn: Yaneth mathew,[address] [facility], [place], [address], [place] - [facility] 5 15:04:48 Migraine 85463448 Active Patricia Minor MD Attn: Yaneth mathew,[address] [facility], [place], [address], [place] [facility] 5 15:04:48 Benign hypertension 68314644 Active Patricia Minor MD Attn: Yaneth mathew,[address] [facility], [place], [address], [place] [facility] 5 15:04:48 Impaired fasting glycemia 231477672 Active Patricia Minor MD Attn: Yaneth mathew,[address] [facility], [place], [address], [place] [facility] 5 13:20:56 Cyst of thyroid 98263229 Active Joann Schaeffer LPN null, [place] - [facility] 5 10:09:41 Fatigue 07841230 Active Patricia Minor MD Attn: Yaneth mathew,[address] [facility], [place], [address], [place] [facility] 5 13:20:56 Depressive disorder 36261047 Active Patricia Minor MD Attn: Yaneth mathew,[address] [facility], [place], [address], [place] [facility] 5 13:20:56 Hyperlipidemia 20672958 Active Patricia Minor MD Attn: Yaneth mathew,[address] [facility], [place], [address], [place] [facility] 5 13:20:56 Notes: Check up [facility] marilee estrellita high headaches Problem Notes None recorded. Procedures Surgical History None recorded. Imaging Results Imaging Date Name Status LastModified by Organiz [facility] Details LastModified Time 01/24/2015 ultrasound, thyroid completed [facility] ([facility]) [address] [place], [address], 01/26/2015 10:54:33 01/24/2015 ultrasound, thyroid completed [facility] [address] [place], [address], 01/26/2015 10:54:33 03/01/2015 ultrasound, thyroid completed [facility] [address] [place], [address], 03/01/2015 13:41:51 01/17/2016 ultrasound, thyroid completed [facility] [address] [place], [address], 01/17/2016 20:17:29 12/25/2017 US, neck, soft tissue completed [facility] ([facility]) [address] [place], [address], 12/25/2017 20:07:16 Procedure Notes None recorded. Medical Equipment None Reported. Allergies No known drug allergies Medications Name Sig Start Date Stop Date Status Note LastModified by Organization Details LastModified Time sumatriptan 100 mg tablet Take 100 mg every day by oral route as needed for 30 days. active Not Available Not Available No t Available metronidazole 500 mg tablet 01/26 completed Not Available Not Available Not Available Vitamin D2 1,250 mcg (50,000 unit) capsule active Not Available Not Available Not Available bupropion HCl XL 300 mg 24 hr tablet, extended release 01/26 completed Not Available Not Available Not Available bupropion HCl XL 150 mg 24 hr tablet, extended release 01/26 completed Not Available Not Available Not Available TriNessa (28) 0.18 mg(7)/0.215 mg(7)/0.25 mg(7)-35 mcg tablet active Not Available Not Available Not Available TriNessa (28) active Not Available Not Available Not Available Vitamin D2 01/26 completed Not Available Not Available Not Available Vitals Date Recorded Respiratory rate Body weight Body temperature Body height Body mass index (BMI) Heart rate Systolic blood pressure Diastolic blood pressure Provider Name and Address Organization Details Last Updated DateTime 5 20 /min 683449. 7873 g 98.2 [degF] 172.72 cm 44.1 kg/m2 84 /min 140 mm[Hg] 84 mm[Hg] November [facility] 5 10:39:12 Date Recorded Respiratory rate Body weight Heart rate Body mass index (BMI) Body height Body temperature Systolic blood pressure Diastolic blood pressure Provider Name and Address Organization Details Last Updated DateTime 5 22 /min 600922. 94349 g 84 /min 37.7 kg/m2 172.72 cm 98.6 [degF] 128 mm[Hg] 82 mm[Hg] November [facility] 5 14:38:30 Date Recorded Systolic blood pressure Diastolic blood pressure Provider Name and Address Organization Details Last Updated DateTime 11/30/2014 130 mm[Hg] 80 mm[Hg] Patricia Minor MD Attn: Accounting,[address] [place], [address], [facility] 11/30/2014 14:54:42 Social History Question Answer Notes LastModified by Organizat ion Details LastModified Time Tobacco Smoking Status Never Smoker November [facility] [place] null, [facility] 11/30/2014 14:38:30 Do You Have An Advance Directive? No Information not available 11/30/2014 What Is Your Level Of Alcohol Consumption? None Information not available 11/30/2014 What Is Your Level Of Caffeine Consumption? Heavy Information not available 11/30/2014 How Much Tobacco Do You Chew? None Information not available 11/30/2014 Education 10 Information no t available 11/30/2014 Are There Any Guns Present In Your Home? No Information not available 11/30/2014 Hard Of Hearing Or Deaf In One Or Both Ears? No Information not available 11/30/2014 Legally Blind In One Or Both Eyes? No Information not available 11/30/2014 Marital Status Single Informatio n not available 11/30/2014 Performs Monthly Self-breast Exam? Yes Information not available 11/30/2014 Seat Belts Used Routinely Yes Information not available 11/30/2014 Smoke Alarm In Home Yes Information not available 11/30/2014 General Stress Level Medium Information not available 11/30/2014 Do You Use Sunscreen Routinely? No Information not available 11/30/2014 Sex: Unknown Functional Status Question Answer Note LastModified by Organization D etails LastModified Time What is your exercise level? None Information not available 11/30/2014 Mental Status None recorded. Family History Nothing Reported. Medical History Condition Response Other Y Headaches Y Gynecological History Statement/Question Response Flow Heavy Frequency of Cycle (Q days) 3 Menses Monthly Y Duration of Flow (days) 7 Age at First Child 16 LMP Definite Obstetrics History GPAL:G 0 P 0 0 0 0 Past Encounters Encounter ID Performer Location Encounter Start Date Encounter Closed Date Diagnosis/Indication Diagnosis SNOMED-CT Code Diagnosis ICD10 Code Diagnosis Note [id number] [facility] [address] [place] [address] 11/30/2014 14:22:06 12/01/2014 12:23:26 Obesity 286170193 General ex amination of patient [id number] 29 y/o WF who was last seen in this office 01/23/2011, in the interim she had abnormal labs that were ordered by her Gynecologi st, Dr. Sifuentes? that suggested pre diabetes. Migraine 92139886 Benign hypertension 80726805 Patient reports elevated readings at the Gynecologi st's office, her BP is stable without meds. I have discussed an appropriat e diet with her. Impaired f asting glycemia 367237572 Cyst of thyroid 99269905 [id number] [facility] [address] [place] [address] 01/26/2015 10:24:45 01/26/2015 11:55:11 Cyst of thyroid 02406938 Complex Thyroid mass on US, previously seen by Dr. Alton manzo at [facility]. The last note I have is from 2007 and at that time a biopsy was discussed, the patient thinks she was last seen there 4 years ago and she had an FNA that was negative. We will call for the last office consultati on note and a copy of the pathology report. A detailed explanatio n was provided and the patient was reassured. Impaired f asting glycemia 292175763 She really should change her diet. she needs to see a locate technician. The other option is Bariatric surgery Fatigue 10779000 She is at high risk for TERE, I will check her B12 level, however I suspect that her mood disorder may be playing a role. Addendum: Epsworth score was only 4 Depressive disorder 91529146 She apparently has a chronic history and she has failed Prozac, Celexa and recently Wellbutrin . She is tired and worries constantly , she had previously seen by a counselor at [facility], however she did not find this productive Hyperlipidemia 56596807 Low cholestero l diet Health Concerns Section Related Observation LastModified by Organization Detemelia ls LastModified Time None Recorded Concern Status LastModified by Organization Details LastModified Time None Recorded Advance Directives Directive N: Payers Encounter Date Sequence Insurance Name Policy Number Policy Bates Covered Member ID Bates Member ID Guarantor Name 11/30/2014 1 [facility] PRIOR TO 03/01/2021 (MEDICAID REPLACEMENT - HMO) Theresa Dutta [id number] Theresa Dutta 01/26/2015 1 [facility] PRIOR TO 03/01/2021 (MEDICAID REPLACEMENT - HMO) Theresa Dutta [id number] Theresa Dutta OBGyn Episode No OBEpisode recorded.
--- OUTSIDE RECORDS SUMMARY | 2024-12-05 12:49 | XMS_ITS | Continuity of Care Document ---
Author Organization [facility] Address [address] [place] [address] Phone Care Team Providers Care Event Sales Manager Name Role Phone Unavailable Unavailable Unavailable Advance Directives Directive Yes / No Effective Date File Name No Information Encounters Encounter Description Practice Location Reason(s) For Visit Diagnoses Date Provider Providers Copied on Encounter [facility], [address] [facility], [place], [place], [id number], [place] tel:[phone] [facility] No Information No Information Referring Provider: ROM Cuenca, [address], [place], [address]. tel:[phone] Family History Family Member Type Diagnosis Age At Onset No Information Payers Payer name Insurance type Covered republican ID Authoriza michelle(s) [employer] [facility] [employer] [facility] [place] [id number] CI [id number] Social History Type Description Quantity Date Captured Comments Sex Female Smoking Status No Information Chief Complaint And Reason For Visit No Information History Of Present Illness Encounter Date Complaint History Of Prese nt Illness No Information Instructions Date Instruction Additional Infor mation No Information Assessments Type Assessment Date No Information
== END 2024-12-05 12:46 | disposition home or self-care (01) ==
PROVIDERS: PCP Emergency Medicine; Visit Provider Emergency Medicine
DX: R51.9 Headache, unspecified (principal); R41.3 Other amnesia
CPT/HCPCS: 70551

== ENCOUNTER 2025-06-13 10:53 | Outpatient (CLI) | payer OTHER, SELFPAY ==
--- OUTSIDE RECORDS SUMMARY | 2025-06-13 12:04 | XMS_ITS | Data Portability ---
Author Organization [facility] [employer] Main Office Address [address] [place] [address] Care Team Providers Care Battery Wrecker Operator Name Role Phone TARUNNBA NAYAN Primary Care Provider NAYAN LINDER Referring Provider Assessment Encounter Date Assessment Date Assessment LastModified by Organization Details LastModified Time 12/26/2022 12/26/2022 This note is dictated and transcribed by [employer]. [employer] variances may occur. Despite proofreading, typographical errors may occur. Not available 12/26/2022 11:15:35 10/09/2023 10/09/2023 This note is dictated and transcribed by [employer]. [employer] variances may occur. Despite proofreading, typographical errors may occur. Occasional wrong-word or 'jryyc-b-kyfs' substitutions may have occurred due to the inherent limitations of voice recording. Read the chart carefully and recognize, using context, where substitutions have occurred. Not available 10/09/2023 16:11:17 05/12/2025 05/12/2025 This note is dictated and transcribed by [employer]. [employer] variances may occur. Despite proofreading, typographical errors may occur. Occasional wrong-word or 'ngyjm-w-guhi' substitutions may have occurred due to the inherent limitations of voice recording. Read the chart carefully and recognize, using context, where substitutions have occurred. Not available 05/12/2025 10:32:55 Plan of Treatment Reminders Order Date Submit [...] Recorded Time Paronychi a of toe of right foot 97560569782 418780 Active 2018 Not Available [facility] 3 20:55:53 Headache 93743114 Active 2018 Not Available [facility] 3 20:55:53 Anemia 761889906 Active 2018 Not Available [facility] 3 20:55:54 Migraine 18732975 Active 2018 Not Available [facility] 3 20:55:54 Hypertens rajiv disorder 10460249 Active 2018 Not Available [facility] 3 20:55:54 Pain of toe of right foot 57175624200 9101 Completed 201810/25/2019 Not Available [facility] 3 20:55:54 Paronychi a of toe of left foot 26625000503 307944 Active 2019 Not Available [facility] 3 20:55:53 Lipoma of lower leg 071521894 Active 2019 Not Available [facility] 3 20:55:53 Ingrowing great toenail 127015562 Active 2024 Dagoberto Perera DPM [address], [place], [address] , [facility] 5 10:33:09 Notes:non-healing wound/sore Problem Notes None recorded. Procedures Surgical History Date Name Laterality Status Provider Name and Address Organization Details Recorded Time 5 Nail Debridement completed Dagoberto Perera DPM [address], [place], [address], [facility] 05/12/2025 10:28:45 5 Toenail avulsion completed Dagoberto Perera DPM [address], [address], [place], [address], [facility] 05/12/2025 10:28:32 4 Toenail avulsion completed Dagoberto Perera DPM [address], [place], [address], [employer] [facility] 10/09/2023 16:10:29 3 Nail Debridement completed Dagoberto Perera DPM [address], [place], [address], [employer] [facility] 08/05/2023 14:43:27 3 Nail Debridement completed Dagoberto Preera DPM [address], [place], [address], [employer] 12/26/2022 11:15:27 Imaging Results None recorded. Procedure Notes None recorded. Medical Equipment None Reported. Allergies Allergen ID Allergen Name Allergen Category Reaction Reaction Severity Criticality Documentation Date Start Date Code Code System Note Provider Name and Address Organization Details Recorded Time 26515 nifedipin e medicatio n Not available Not available Not available 10/30/2022 7417 RxNorm flush ed skin, hot and dizzy Not Available [facility] 3 20:56:54 Medications Name Sig Start Date [...] Not Available Not Available No t Available cetirizine 10 mg tablet TAKE 1 TABLET BY [...] mg tablet TAKE 1 TABLET BY MOUTH AT BEDTIME active Not Available Not Available No t Available sulfamethox azole 800 mg-trimetho prim 160 mg tablet TAKE 1 TABLET BY MOUTH TWICE DAILY active Not Available Not Available No t Available levothyroxi ne 25 mcg tablet TAKE 1 TABLET BY MOUTH DAILY [...] Available No t Available dextroamphe tamine-amph etamine ER 10 mg 24hr capsule,ext end release TAKE 1 CAPSULE BY MOUTH DAILY active [...] unit) capsule TAKE 1 CAPSULE BY MOUTH ONCE WEEKLY active Not Available Not Available No t [...] t Available escitalopra m 10 mg tablet TAKE 1 TABLET BY MOUTH DAILY active Not Available Not Available No t Available ezetimibe 10 mg tablet TAKE 1 TABLET BY MOUTH DAILY active Not Available Not Available No t Available Strattera 10 mg capsule TAKE 1 CAPSULE BY MOUTH DAILY active Not Available Not Available No t Available Strattera 18 mg capsule TAKE 1 CAPSULE BY MOUTH DAILY active Not Available Not Available No t Available cyclobenzap rine 5 mg tablet TAKE 1 TABLET BY MOUTH THREE TIMES DAILY active Not Available Not Available No t Available FeroSul 325 mg (65 mg iron) tablet TAKE 1 TABLET BY MOUTH TWICE DAILY active Not Available Not Available No t Available Trulicity 0.75 mg/0.5 mL subcutaneou s pen injector ADMINISTE R 0.75 MG UNDER THE SKIN WEEKLY active Not Available Not Available No t Available Slynd 4 mg (28) tablet TAKE 1 TABLET BY MOUTH DAILY active Not Available Not Available No t Available Vitals Date Recorded Body height Heart rate Respiratory rate Body temperature Oxygen saturation Oxygen saturation in Arterial blood by Pulse oximetry Body mass index (BMI) Body weight Systolic And Diastolic Provider Name and Address Organization Details Last Updated DateTime 4 175.26 cm 68 /min 14 /min 98.1 [degF] 98 % 98 % 41.3 kg/m2 018250. 86 g 130/80 mm[Hg] Tova Gonzalez [facility] 4 14:56:28 Date Recorded Body height Heart rate Respiratory rate Oxygen saturation Oxygen saturation in Arterial blood by Pulse oximetry Systolic And Diastolic Provider Name and Address Organization Details Last Updated DateTime 3 175.26 cm 80 /min 14 /min 98 % 98 % 140/90 mm[Hg] Tran Calixto [facility] 3 10:43:42 Date Recorded Body height Heart rate Body mass index (BMI) Body weight Body temperature Oxygen saturation Oxygen saturation in Arterial blood by Pulse oximetry Systolic And Diastolic Provider Name and Address Organization Details Last Updated DateTime 5 175.26 cm 81 /min 41.3 kg/m2 075405. 86 g 97.3 [degF] 99 % 99 % 133/89 mm[Hg] FRANKLIN Armenta [place] [facility] 5 10:08:37 Date Recorded Body height Provider Name an d Address Organization Details Last Updated DateTime 06/13/2022 175.26 cm Not Available [facility] 3 20:55:43 Date Recorded Body height Heart rate Respiratory rate Oxygen saturation Oxygen saturation in Arterial blood by Pulse oximetry Systolic And Diastolic Provider Name and Address Organization Details Last Updated DateTime 3 175.26 cm 85 /min 14 /min 99 % 99 % 132/95 mm[Hg] Tran Durga [place] - [facility] 3 11:15:22 Social History None recorded. Functional Status None [...] Diagnosis SNOMED-CT Code Diagnosis ICD10 Code Diagnosis IMO Codes Diagnosis Note [id number] Dagoberto Perera DPM [facility] [address] [place] [address] 03/08/2021 00:00:00 03/08/2021 13:56:55 [id number] Dagoberto Perera DPM [facility] [address] [place] [address] 03/22/2021 00:00:00 03/22/2021 16:42:38 [id number] Dagoberto Perera DPM [facility] [address] [place] [address] 06/07/2021 00:00:00 06/07/2021 12:45:22 [id number] Dagoberto Perera DPM [facility] [address] [place] [address] 06/15/2021 00:00:00 06/15/2021 14:15:22 [id number] Dagoberto Perera DPM [facility] [address] [place] [address] 06/28/2021 00:00:00 06/28/2021 12:23:55 [id number] Dagoberto Perera DPM [facility] [address] [place] [address] 11/01/2021 00:00:00 11/01/2021 10:45:45 [id number] Dagoberto Perera DPM [facility] [address] [place] [address] 04/18/2022 00:00:00 04/18/2022 13:36:18 [id number] Dagoberto Perera DPM [facility] [address] [place] [address] 05/23/2022 00:00:00 05/23/2022 12:02:04 [id number] Dagoberto Perera DPM [facility] [address] [place] [address] 05/30/2022 00:00:00 05/30/2022 15:39:29 [id number] Dagoberto Perera DPM [facility] [address] [place] [address] 06/13/2022 00:00:00 06/13/2022 11:45:02 [id number] Dagoberto Perera DPM [facility] [place] [address] [facility] [address] [place] [address] 12/26/2022 10:39:15 12/26/2022 11:23:15 Paronychia of toe of left foot 2809492527 1488973 L03.032 Successful partial chemical matrixecto my lateralcon [...] my of both great toe medial corners [id number] Dagoberto Perera DPM [facility] [place] [address] [facility] [address] [place] [address] 08/05/2023 11:00:28 08/06/2023 16:50:44 Paronychia of toe of left foot 9169353788 6417339 L03.032 medial great toenail debrided without incidentwo und care instructio ns reviewedtr eatment options reviewedpa tient denies wanting any further surgery at this timefollow -up as needed [id number] Dagoberto Perera DPM [facility] [place] [address] [place] [address] 10/09/2023 14:37:31 10/14/2023 13:25:15 Paronychia of toe of left foot 3328688506 3928440 L03.032 medial great toenail debrided without incidentwo und care instructio ns reviewedtr eatment options reviewedpa tient denies wanting any further surgery at this timefollow -up as needed [id number] Dagoberto Perera DPM [facility] [place] [address] [place] [address] 05/12/2025 10:03:19 05/13/2025 14:00:42 Paronychia of toe of right foot 7590196476 0023829 L03.031 lateralpar tial nail avulsionwo und care reviewedmo nitor for signs of infection at present seek medical attention immediatel yfollow-up in 1 week if not healed Ingrowing great toenail 477332229 L60.0 178335 medial- debridedna il cut w/o incident Health Concerns Section Related Observation LastModified by Organization Detai ls LastModified Time None Recorded Concern Status LastModified by Organization Details LastModified Time None Recorded Advance Directives Directive None Recorded Payers Insurance Date Sequence Insurance Name Policy Number Policy Bates Covered Member ID Bates Member ID Guarantor Name 05/12/2025 1 [facility] ON OR AFTER 21 (MEDICAID REPLACEMENT - HMO) Theresa Dutta [id number] Theresa Dutta Notes Date Note Type Note [...] other complaints. Dagoberto Perera DPM [address], [employer] [place], [address], [facility] 12/26/2022 11:18:31 08/05/2023 text/html . Patient is [...] to change her mind. Dagoberto Perera DPM [address], [place], [address], [facility] 08/05/2023 14:44:23 10/09/2023 text/html Patient is a [...] complaints. Dagoberto Perera DPM [address], [facility] [address], [place], [address], [employer] [facility] [employer] 10/09/2023 16:12:59 05/12/2025 text/html . Patient is a 39-year-old female she returns for follow-up on paronychia of the right great toenail. Patient has developed a new ingrown to the lateral aspect she states it has been draining and painful she has been dealing with it for couple months. Patient denies any fever, chills, nausea or vomiting. Patient states when she is at rest it does feel better. Dagoberto Perera DPM [address], [facility] [address], [place], [address], [employer] 05/12/2025 10:44:54 OBGyn Episode No OBEpisode recorded.
--- OUTSIDE RECORDS SUMMARY | 2025-06-13 12:04 | XMS_ITS | Clinical Summary ---
Author Organization 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
--- OUTSIDE RECORDS SUMMARY | 2025-06-13 12:04 | XMS_ITS | Clinical Summary ---
Author Organization [address] Address [address] [place] [id number] Care Team Providers Care Button Cutter Name Role Phone Terry River MD Primary Care Provide r Allergies Active Allergy Reactions Criticality Noted Date Comments Nifedipine Flushing (skin) Low 04/25/2025 nifedipine Medications metFORMIN XR (GLUCOPHAGE XR) 500 mg 24 hr tablet Take 2 tablets (1,000 mg total) by mouth 2 (two) times a day Active levothyroxine (SYNTHROID) 25 mcg tablet Take 1 tablet (25 mcg total) by mouth daily Active ezetimibe (ZETIA) 10 mg tablet Take 1 tablet (10 mg total) by mouth daily Active FeroSuL 325 mg (65 mg iron) tablet Take 1 tablet (325 mg total) by mouth 2 (two) times a day Active dextroamphetami ne-amphetamine XR (ADDERALL XR) 10 mg 24 hr capsule Take 1 capsule (10 mg total) by mouth every morning 5 Active fluticasone propionate (FLONASE) 50 mcg/actuation nasal spray Administer 2 sprays into affected nostril(s) daily 8 Active escitalopram (LEXAPRO) 10 mg tablet Take 1 tablet (10 mg total) by mouth daily Active Trulicity 0.75 mg/0.5 mL pen injector Inject 0.5 mL (0.75 mg total) under the skin once a week Active ergocalciferol (VITAMIN D) 50,000 unit capsule Take 1 capsule (50,000 Units total) by mouth once a week 5 Active multivitamin tabletIndicatio ns:Vitamin Deficiency Prevention Take 1 tablet by mouth Active hydroCHLOROthia zide (HYDRODIURIL) 25 mg tablet Take 1 tablet (25 mg total) by mouth daily 90 tablet 2 5 Active amLODIPine (NORVASC) 5 mg tablet Take 1 tablet (5 mg total) by mouth nightly at bedtime. 90 tablet 2 5 Active metoprolol XL (TOPROL-XL) 25 mg extended release tablet Take 1 tablet (25 mg total) by mouth daily 90 tablet 2 5 Active Active Problems Problem Noted Date Diagnosed Date TERE (obstructive sleep apnea) 02/10/2025 Morbid obesity with BMI of 40.0-44.9, adult 01/30 Morbid obesity 02/10/2025 Prediabetes 02/10/2025 PCOS (polycystic ovarian syndrome) 02/10/2025 Essential hypertension 02/10/2025 Diabetes mellitus type II, non insulin dependent 02/10/2025 Encounters Date Type Department Care Team Description 04/25/2025 Telephone [facility] Cardiology at [address] [place] [address] Alonzo Green MD 03/29/2025 Telephone [facility] Cardiology [address] [facility] [address] [place] [address] Alonzo Green MD from Last 3 Months Surgical History Surgery Date Site/Laterality Comments HEMORROIDECTOMY MYOMECTOMY BIOPSY Medical History Medical History Date Comments Hypertension Thyroid disease Prediabetes PCOS (polycystic ovarian syndrome) Diabetes mellitus Hyperlipidemia Adhd Family History Medical History Relation Name Comments Arrhythmia Mother Atrial fibrillation Mother Hyperlipidemia Mother Hypertension Mother Hypertension Other 1 Hypertension - mother and sister (Added by TW Conv) Diabetes Other 2 Diabetes Mellit us - grandma in her 60's (Added by TW Conv) Heart disease Other 3 Heart Disease - grandma in her 60's (Added by TW Conv) Brain cancer Other 4 Brain Tumor - g randpa at age 70 (Added by TW Conv) Relation Name Status Comments Father Alive Mother Alive Other 1 Other 2 Other 3 Other 4 Social History Tobacco Use Types Packs/Day Years Used Date Smoking Tobacco: Never Smokeless Tobacco: Never Tobacco Cessation:Counseling Given: Not Answered Comments Unknown Sex and Gender Information Value Date Recorded Sex Assigned at Not on file 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 Gender Identity Not on file Sexual Orientation Not on file Obstetrics History Last Filed Vital Signs Vital Sign Reading Time Taken Comments Blood Pressure 110/78 02/10/2025 9:37 AM CDT Pulse 61 02/10/2025 9:37 AM CDT Temperature - - Respiratory Rate - - Oxygen Saturation 98% 02/10/2025 9:37 AM CDT Inhaled Oxygen Concentration - - Weight 129.7 kg (286 lb) 02/10/2025 9:37 AM CDT Height 172.7 cm (5' 8) 02/10/2025 9:37 AM CDT Body Mass Index 43.49 02/10/2025 9:37 AM CDT Plan of Treatment Health Maintenance Due Date Last Done Comments Albumin Creatinine Ratio, Urine 1985 Cervical Cancer Screening 1985 Depression Screening 1985 Hemoglobin A1C 1985 Hepatitis C Screening 1985 eGFR 1985 Dilated Eye Exam 1985 Foot Exam 1985 DTaP/Tdap/Td Vaccine (1 - Tdap) 1996 Varicella Vaccines (1 of 2 - 13+ 2-dose series) 1997 Hepatitis B Screening 2003 Regular Well Visit/Exam 18-64 2003 Pneumococcal vaccine <65 (1 of 2 - PCV) 2004 HPV Vaccines (1 - 3-dose SCDM series) 2012 Influenza Vaccine (#1) 2025 Lipid Panel 02/10/2026 02/10/2025 Procedures Procedure Name Priority Date/Time Associated Diagnosis Comments POCT LIPID PANEL Routine 02/10/2025 9:27 AM CDT Essential hypertension from Last 3 Months or Most Recently Relevant to Health Maintenance Results * POCT lipid panel (02/10/2025 9:27 AM CDT) Cholesterol, POC 159 <200 MG/DL HDL, POC 42 >=40 mg/dL Triglycerides, POC 125 <=149 mg/dL LDL Cholesterol POC 92 <=129 mg/dL Chol/HDL Ratio, POC 3.8 NONE Non-HDL Cholesterol, POC 117 NONE mg/dL Cholesterol Total, POC 159 30 - 199 mg/dL Capillary blood 02/10/2025 9 :27 AM CDT us Alonzo Green MD POINT OF CARE TEST ORDERA BLES Final Result from Last 3 Months or Most Recently Relevant to Health Maintenance Insurance [facility] Care Teams Button Cutter Relationship Specialty Start Date End Date Terry River MD [address] [place] [address] PCP - General Emergency Medicine 02/09/25
--- OUTSIDE RECORDS SUMMARY | 2025-06-13 12:05 | XMS_ITS | Data Portability ---
Author Organization [facility]KOUKyleThynedale [facility] Address [address] [place] [address] Care Team Providers Care Installation Manager Name Role Phone ROM SIFUENTES Referring Provider [phone] Assessment No assessment recorded. Plan of Treatment Reminders Order Date Submit Date Provider Last Modified By Organization Details Last Modified Time Details Appointments None recorded. Lab vitamin B12, serum 2014 015 MORALES GANN, Rowena Gallardo, [facility] [address], [place], [address], 5 08:20:41 HbA1c (hemoglobin A1c), blood 2014 015 MORALES GANN, Rowena Gallardo, [facility] [address], [place], [address], 5 13:21:22 glucose tolerance test, post-75G, 3 specimens 2014 015 Rowena KENDALL, [facility] [address], [place], [address], 5 13:21:22 CBC w/ auto diff 2014 015 Rowena KENDALL, [address], [place], [address], 5 13:21:20 CMP, serum or plasma 2014 015 Rowena KENDALL, [facility] [address], [place], [address], 5 13:21:21 urinalysis, complete 2014 015 [facility] [address] [place] [address], [address], [place], [address], 5 13:21:21 lipid panel, serum 2014 015 [facility], [address] [place] [address], [address], [place], [address], 5 13:21:19 thyroid panel, serum 2014 015 [facility], [address] [place] [address], [address], [place], [address], 5 13:21:23 Referral nutritionis t/dietitian referral - Obesity [email or web address] [place] [address] Nutrition/ Breaker Engineer, [address] [place], [address], 5 09:38:34 counseling referral 2014 015 [facility] (), [address] [place], [address], 5 09:36:39 psychiatris t referral - Depression & Anxiety 2014 015 [facility] (), [address] [place], [address], 5 09:36:39 Procedures None recorded. Surgeries None recorded. Imaging ultrasound, thyroid - Thyroid ultrasound 2014 015 MORALES Not available 5 14:44:15 Medication Orders Imitrex 100 mg tablet 2014 015 [id number], [address] [facility] [place], [place], [id number], 15:04:49 Patient TargetsNo targets recorded. Patient Instructions Encounter Date Encounter Id Patient Instructions Last Modified By Organization Details Last Modified Time 11/30/2014 [id number] prediabetes: car e instructions asavala Not available 11/30/2014 15:10:18 When You Want to Lose Weight: Care Instructions asavala Not available 11/30/2014 15:10:18 01/26/2015 [id number] prediabetes: car e instructions asavala Not available 01/26/2015 15:41:21 learning about mood disorders asavala Not available 01/26/2015 15:41:21 Reason for Referral Collector/dietitian Refer ral for Impaired fasting glycemia Obesity [...] 166 mg/dL 100-19 9 Not Available [facility] ([facility]) [address] [place], [address], 01/11/2015 13:21:19 01/11/2001/11/2015 lipid panel , serum triglyceride s 151 mg/dL 0-149 high Not Available [facility] ([facility]) [address] [place], [address], 01/11/2015 13:21:19 01/11/20 15 01/11/2015 lipid panel , serum LDL chol. (direct) 107 mg/dL 0-99 high Not Available [facility] ([facility]) [address] [place], [address], 01/11/2015 13:21:19 01/11/20 15 01/11/2015 lipid panel , serum HDL cholesterol 40 mg/dL >39 ACCOR DING TO ATP-I II GUIDE LINES , HDL-C >59 MG/DL IS CONSI DERED A NEGAT LAURA RISK FACTO R FOR CHD. Not Available [facility] ([facility]) [address] [facility], [place], [address], 01/11/2015 13:21:19 01/11/20 15 01/11/2015 lipid panel , serum VLDL cholesterol amberly 30 mg/dL 5-40 Not Available [facility] ([facility]) [address] [facility], [place], [address], 01/11/2015 13:21:19 01/11/20 15 01/11/2015 lipid panel , serum LDL cholesterol calc 96 mg/dL 0-99 Not Available [facility] ([facility]) [address] [facility], [place], [address], 01/11/2015 13:21:19 01/11/2001/11/2015 lipid panel , serum LDL/HDL ratio 2.4 ratio _unit s 0.0-3. 2 LDL/H DL RATIO MEN WOMEN 1/2 AVG.R ISK 1.0 1.5 AVG.R ISK 3.6 3.2 2X AVG.R ISK 6.2 5.0 3X AVG.R ISK 8.0 6.1 Not Available [facility] ([facility]) [address] [facility], [place], [address], 01/11/2015 13:21:19 01/11/2001/10/2015 CBC w/ auto diff WBC 10.0 x10e3 /uL 3.4-10 .8 Not Available [facility] ([facility]) [address] [facility], [place], [address], 01/11/2015 13:21:20 01/11/20 15 01/10/2015 CBC w/ auto diff RBC 5.02 x10e6 /uL 3.77-5 .28 Not Available [facility] ([facility]) [address] [place], [address], 01/11/2015 13:21:20 01/11/20 15 01/10/2015 CBC w/ auto diff hemoglobin 11.2 g/dL 11.1-1 5.9 Not Available [facility] ([facility]) [address] [place], [address], 01/11/2015 13:21:20 01/11/20 15 01/10/2015 CBC w/ auto diff hematocrit 36.2 % 34.0-4 6.6 Not Available [facility] ([facility]) [address] [place], [address], 01/11/2015 13:21:20 01/11/20 15 01/10/2015 CBC w/ auto diff MCV 72 fL 79-97 low Not Available [facility] ([facility]) [address] [place], [address], 01/11/2015 13:21:20 01/11/20 15 01/10/2015 CBC w/ auto diff MCH 22.3 pg 26.6-3 3.0 low Not Available [facility] ([facility]) [address] [place], [address], 01/11/2015 13:21:20 01/11/20 15 01/10/2015 CBC w/ auto diff MCHC 30.9 g/dL 31.5-3 5.7 low Not Available [facility] ([facility]) [address] [place], [address], 01/11/2015 13:21:20 01/11/20 15 01/10/2015 CBC w/ auto diff RDW 14.8 % 12.3-1 5.4 Not Available [facility] ([facility]) [address] [place], [address], 01/11/2015 13:21:20 01/11/20 15 01/10/2015 CBC w/ auto diff platelets 281 x10e3 /uL 150-37 9 Not Available [facility] ([facility]) [address] [place], [address], 01/11/2015 13:21:20 01/11/20 15 01/10/2015 CBC w/ auto diff neutrophils 64 % Not Available [facility] ([facility]) [address] [place] [address], [address], 01/11/2015 13:21:20 01/11/20 15 01/10/2015 CBC w/ auto diff lymphs 30 % Not Available [facility] ([facility]) [address] [place] [address], [address], 01/11/2015 13:21:20 01/11/20 15 01/10/2015 CBC w/ auto diff monocytes 5 % Not Available [facility] ([facility]) [address] [place] [address], [address], 01/11/2015 13:21:20 01/11/20 15 01/10/2015 CBC w/ auto diff eos 1 % Not Available [facility] ([facility]) [address] [place] [address], [address], 01/11/2015 13:21:20 01/11/20 15 01/10/2015 CBC w/ auto diff basos 0 % Not Available [facility] ([facility]) [address] [place] [address], [address], 01/11/2015 13:21:20 01/11/20 15 01/10/2015 CBC w/ auto diff neutrophils (absolute) 6.4 x10e3 /uL 1.4-7. 0 Not Available [facility] ([facility]) [address] [place] [address], [address], 01/11/2015 13:21:20 01/11/20 15 01/10/2015 CBC w/ auto diff lymphs (absolute) 3.0 x10e3 /uL 0.7-3. 1 Not Available [facility] ([facility]) [address] [place], [address], 01/11/2015 13:21:20 01/11/20 15 01/10/2015 CBC w/ auto diff monocytes(ab solute) 0.5 x10e3 /uL 0.1-0. 9 Not Available [facility] ([facility]) [address] [place], [address], 01/11/2015 13:21:20 01/11/20 15 01/10/2015 CBC w/ auto diff eos (absolute) 0.1 x10e3 /uL 0.0-0. 4 Not Available [facility] ([facility]) [address] [place], [address], 01/11/2015 13:21:20 01/11/20 15 01/10/2015 CBC w/ auto diff baso (absolute) 0.0 x10e3 /uL 0.0-0. 2 Not Available [facility] ([facility]) [address] [place], [address], 01/11/2015 13:21:20 01/11/20 15 01/10/2015 CBC w/ auto diff immature granulocytes 0 % Not Available [facility] ([facility]) [address] [place], [address], 01/11/2015 13:21:20 01/11/20 15 01/10/2015 CBC w/ auto diff immature grans (abs) 0.0 x10e3 /uL 0.0-0. 1 Not Available [facility] ([facility]) [address] [place], [address], 01/11/2015 13:21:20 01/11/20 15 01/11/2015 CMP, serum or plasm a glucose, serum 108 mg/dL 65-99 high Not Available [facility] ([facility]) [address] [place], [address], 01/11/2015 13:21:20 01/11/20 15 01/11/2015 CMP, serum or plasm a BUN 10 mg/dL 6-20 Not Available [facility] ([facility]) [address] [place], [address], 01/11/2015 13:21:20 01/11/20 15 01/11/2015 CMP, serum or plasm a creatinine, serum 0.72 mg/dL 0.57-1 .00 Not Available [facility] ([facility]) [address] [place], [address], 01/11/2015 13:21:20 01/11/20 15 01/11/2015 CMP, serum or plasm a eGFR if nonafricn AM 114 mL/mi n/1.7 3 >59 Not Available [facility] ([facility]) [address] [place], [address], 01/11/2015 13:21:20 01/11/20 15 01/11/2015 CMP, serum or plasm a eGFR if africn AM 131 mL/mi n/1.7 3 >59 Not Available [facility] ([facility]) [address] [facility], [place], [address], 01/11/2015 13:21:20 01/11/20 15 01/11/2015 CMP, serum or plasm a BUN/creatini ne ratio 14 8-20 Not Available [facility] ([facility]) [address] [place], [address], 01/11/2015 13:21:20 01/11/20 15 01/11/2015 CMP, serum or plasm a sodium, serum 140 mmol/ L 134-14 4 Not Available [facility] ([facility]) [address] [place], [address], 01/11/2015 13:21:20 01/11/20 15 01/11/2015 CMP, serum or plasm a potassium, serum 4.5 mmol/ L 3.5-5. 2 Not Available [facility] ([facility]) [address] [place], [address], 01/11/2015 13:21:20 01/11/20 15 01/11/2015 CMP, serum or plasm a chloride, serum 102 mmol/ L 97-108 Not Available [facility] ([facility]) [address] [place], [address], 01/11/2015 13:21:20 01/11/20 15 01/11/2015 CMP, serum or plasm a carbon dioxide, total 22 mmol/ L 18-29 Not Available [facility] ([facility]) [address] [place], [address], 01/11/2015 13:21:20 01/11/20 15 01/11/2015 CMP, serum or plasm a calcium, serum 9.2 mg/dL 8.7-10 .2 Not Available [facility] ([facility]) [address] [place], [address], 01/11/2015 13:21:20 01/11/20 15 01/11/2015 CMP, serum or plasm a protein, total, serum 6.4 g/dL 6.0-8. 5 Not Available [facility] ([facility]) [address] [place], [address], 01/11/2015 13:21:20 01/11/20 15 01/11/2015 CMP, serum or plasm a albumin, serum 4.1 g/dL 3.5-5. 5 Not Available [facility] ([facility]) [address] [place], [address], 01/11/2015 13:21:20 01/11/20 15 01/11/2015 CMP, serum or plasm a globulin, total 2.3 g/dL 1.5-4. 5 Not Available [facility] ([facility]) [address] [place], [address], 01/11/2015 13:21:20 01/11/20 15 01/11/2015 CMP, serum or plasm a A/G ratio 1.8 1.1-2. 5 Not Available [facility] ([facility]) [address] [facility] [place], [address], 01/11/2015 13:21:20 01/11/20 15 01/11/2015 CMP, serum or plasm a bilirubin, total 0.2 mg/dL 0.0-1. 2 Not Available [facility] ([facility]) [address] [facility] [place], [address], 01/11/2015 13:21:20 01/11/20 15 01/11/2015 CMP, serum or plasm a alkaline phosphatase, S 73 IU/L 39-117 Not Available [facility] ([facility]) [address] [place], [address], 01/11/2015 13:21:20 01/11/20 15 01/11/2015 CMP, serum or plasm a AST (SGOT) 13 IU/L 0-40 Not Available [facility] ([facility]) [address] [place], [address], 01/11/2015 13:21:20 01/11/20 15 01/11/2015 CMP, serum or plasm a ALT (SGPT) 14 IU/L 0-32 Not Available [facility] ([facility]) [address] [place], [address], 01/11/2015 13:21:20 01/11/20 15 01/11/2015 urina lysis , compl ete specific gravity 1.021 1.005- 1.030 Not Available [facility] ([facility]) [address] [place], [address], 01/11/2015 13:21:21 01/11/20 15 01/11/2015 urina lysis , compl ete pH 6.0 5.0-7. 5 Not Available [facility] ([facility]) [address] [facility], [place], [address], 01/11/2015 13:21:21 01/11/20 15 01/11/2015 urina lysis , compl ete urine-color YELLOW yellow Not Available [facility] ([facility]) [address] [facility], [place], [address], 01/11/2015 13:21:21 01/11/20 15 01/11/2015 urina lysis , compl ete appearance CLEAR clear Not Available [facility] ([facility]) [address] [place], [address], 01/11/2015 13:21:21 01/11/20 15 01/11/2015 urina lysis , compl ete WBC esterase NEGATI VE negati ve Not Available [facility] ([facility]) [address] [place], [address], 01/11/2015 13:21:21 01/11/20 15 01/11/2015 urina lysis , compl ete protein NEGATI VE negati ve/tra ce Not Available [facility] ([facility]) [address] [place], [address], 01/11/2015 13:21:21 01/11/20 15 01/11/2015 urina lysis , compl ete glucose NEGATI VE negati ve Not Available [facility] ([facility]) [address] [place], [address], 01/11/2015 13:21:21 01/11/20 15 01/11/2015 urina lysis , compl ete ketones NEGATI VE negati ve Not Available [facility] ([facility]) [address] [place], [address], 01/11/2015 13:21:21 01/11/20 15 01/11/2015 urina lysis , compl ete occult blood TRACE negati ve abnormal Not Available [facility] ([facility]) [address] [place], [address], 01/11/2015 13:21:21 01/11/20 15 01/11/2015 urina lysis , compl ete bilirubin NEGATI VE negati ve Not Available [facility] ([facility]) [address] [place], [address], 01/11/2015 13:21:21 01/11/20 15 01/11/2015 urina lysis , compl ete urobilinogen ,semi-qn 0.2 mg/dL 0.0-1. 9 Not Available [facility] ([facility]) [address] [place], [address], 01/11/2015 13:21:21 01/11/20 15 01/11/2015 urina lysis , compl ete nitrite, urine NEGATI VE negati ve Not Available [facility] ([facility]) [address] [place], [address], 01/11/2015 13:21:21 01/11/20 15 01/11/2015 urina lysis , compl ete microscopic examination SEE BELOW: MICRO SCOPI C WAS INDIC ATED AND WAS PERFO RMED. Not Available [facility] ([facility]) [address] [place], [address], 01/11/2015 13:21:21 01/11/20 15 01/11/2015 urina lysis , compl ete WBC 0-5 /hpf 0 - 5 Not Available [facility] ([facility]) [address] [place], [address], 01/11/2015 13:21:21 01/11/20 15 01/11/2015 urina lysis , compl ete RBC NONE SEEN /hpf 0 - 2 Not Available [facility] ([facility]) [address] [place], [address], 01/11/2015 13:21:21 01/11/20 15 01/11/2015 urina lysis , compl ete epithelial cells (non renal) 0-10 /hpf 0 - 10 Not Available [facility] ([facility]) [address] [place], [address], 01/11/2015 13:21:21 01/11/20 15 01/11/2015 urina lysis , compl ete mucus threads PRESEN T not estab. Not Available [facility] ([facility]) [address] [place], [address], 01/11/2015 13:21:21 01/11/20 15 01/11/2015 urina lysis , compl ete bacteria FEW none seen/f ew Not Available [facility] ([facility]) [address] [facility], [place], [address], 01/11/2015 13:21:21 01/11/20 15 01/11/2015 gluco se macey ance test, post- 75G, 3 speci mens glucose, fasting 110 mg/dL 65-99 high Not Available [facility] ([facility]) [address] [place], [address], 01/11/2015 13:21:22 01/11/20 15 01/11/2015 gluco se macey ance test, post- 75G, 3 speci mens glucose, 1/2 hour TNP TEST NOT PERFO RMED Not Available [facility] ([facility]) [address] [place], [address], 01/11/2015 13:21:22 01/11/2001/11/2015 gluco se macey ance test, post- 75G, 3 speci mens glucose, 1 hour 186 mg/dL 65-199 Not Available [facility] ([facility]) [address] [place], [address], 01/11/2015 13:21:22 01/11/20 15 01/11/2015 gluco se macey ance test, post- 75G, 3 speci mens glucose, 1 1/2 hour TNP TEST NOT PERFO RMED Not Available [facility] ([facility]) [address] [place], [address], 01/11/2015 13:21:22 01/11/20 15 01/11/2015 gluco se macey ance test, post- 75G, 3 speci mens glucose, 2 hour 161 mg/dL 65-139 high Not Available [facility] ([facility]) [address] [place], [address], 01/11/2015 13:21:22 01/11/20 15 01/11/2015 gluco se macey ance test, post- 75G, 3 speci mens glucose, 3 hour TNP TEST NOT PERFO RMED Not Available [facility] ([facility]) [address] [place], [address], 01/11/2015 13:21:22 01/11/20 15 01/11/2015 gluco se macey ance test, post- 75G, 3 speci mens glucose, 4 hour TNP TEST NOT PERFO RMED Not Available [facility] ([facility]) [address] [place], [address], 01/11/2015 13:21:22 01/11/20 15 01/11/2015 gluco se macey ance test, post- 75G, 3 speci mens glucose, 5 hour TNP TEST NOT PERFO RMED Not Available [facility] ([facility]) [address] [place], [address], 01/11/2015 13:21:22 01/11/20 15 01/11/2015 gluco se macey ance test, post- 75G, 3 speci mens glucose, 6 hour TNP TEST NOT PERFO RMED Not Available [facility] ([facility]) [address] [place], [address], 01/11/2015 13:21:22 01/11/20 15 01/11/2015 HbA1c (hemo globi n A1c), blood hemoglobin A1C 6.4 % 4.8-5. 6 high . INCRE ASED RISK FOR DIABE DANYELLE: 5.7 - 6.4 DIABE DANYELLE: >6.4 GLYCE SOLA CONTR OL FOR ADULT S WITH DIABE DANYELLE: <7.0 Not Available [facility] ([facility]) [address] [facility], [place], [address], 01/11/2015 13:21:22 01/11/20 15 01/11/2015 thyro id panel , serum TSH 1.180 uIU/m L 0.450- 4.500 Not Available [facility] ([facility]) [address] [facility], [place], [address], 01/11/2015 13:21:23 02/11/20 15 02/11/2015 vitam in B12, serum vitamin B12 473 pg/mL 211-94 6 Not Available [facility] ([facility]) [address] [facility], [place], [address], 02/11/2015 08:20:41 01/25/20 15 01/24/2015 ultra sound , thyro id No observ ation record ed. [facility] (Imaging) [address] [place], [address], 01/26/2015 10:54:33 01/25/20 15 01/24/2015 ultra sound , thyro id No observ ation record ed. [facility] (Im[facility]) [address] [place], [address], 01/26/2015 10:54:33 03/01/20 15 03/01/2015 ultra sound , thyro id No observ ation record ed. [facility] ([facility]) [address] [place], [address], 03/01/2015 13:41:51 01/17/20 16 01/17/2016 ultra sound , thyro id No observ ation record ed. [facility] [address] [place], [address], 01/17/2016 20:17:29 12/26/19 18 12/25/2017 US, neck, soft tissu e No observ ation record ed. [facility] ([facility]) [address], [place], [address], 12/25/2017 20:07:16 Result Notes None recorded. Problems Name Problem SNOMED Code Status Onset Date Resolution Date Notes Provider Name and Address Organization Details Recorded Time Obesity 987335751 Active Patricia Minor MD Attn: Yaneth mathew,[address] [facility], [place], [address], [place] - [facility] 5 15:04:48 Migraine 71312555 Active Patricia Minor MD Attn: Yaneth mathew,[address] [facility], [place], [address], [place] [facility] 5 15:04:48 Benign hypertension 17924017 Active Patricia Minor MD Attn: Yaneth mathew,[address] [facility], [place], [address], [place] [facility] 5 15:04:48 Impaired fasting glycemia 279386329 Active Patricia Minor MD Attn: Yaneth mathew,[address] [facility], [place], [address], [place] [facility] 5 13:20:56 Cyst of thyroid 26443910 Active Joann Schaeffer LPN null, [place] - [facility] 5 10:09:41 Fatigue 74429828 Active Patricia Minor MD Attn: Yaneth mathew,[address] [facility], [place], [address], [place] [facility] 5 13:20:56 Depressive disorder 00886445 Active Patricia Minor MD Attn: Yaneth mathew,[address] [facility], [place], [address], [place] [facility] 5 13:20:56 Hyperlipidemia 25686661 Active Patricia Minor MD Attn: Yaneth mathew,[address] [place], [address], [facility] - [facility] 5 13:20:56 Notes:Check up Super marilee estrellita high headaches Problem Notes None recorded. Medical Equipment None Reported. [...] Not Available Not Available Vitals Date Recorded Systolic And Diastolic Provider Name and Address Organization Details Last Updated DateTime 11/30/2014 130/80 mm[Hg] Patricia Minor MD Attn: Accounting,[address] [place], [address], [place] - [facility] 11/30/2014 14:54:42 Date Recorded Respiratory rate Body weight Heart rate Body mass index (BMI) Body height Body temperature Systolic And Diastolic Provider Name and Address Organization Details Last Updated DateTime 5 22 /min 474880. 11668 g 84 /min 37.7 kg/m2 172.72 cm 98.6 [degF] 128/82 mm[Hg] November Vane [facility] - [facility] 5 14:38:30 Date Recorded Respiratory rate Body weight Body temperature Body height Body mass index (BMI) Heart rate Systolic And Diastolic Provider Name and Address Organization Details Last Updated DateTime 5 20 /min 443679. 7873 g 98.2 [degF] 172.72 cm 44.1 kg/m2 84 /min 140/84 mm[Hg] November COLBY Cifuentes [place] - [facility] 5 10:39:12 Social History Question Answer Notes LastModified by Organizat ion Details LastModified Time Tobacco Smoking Status Never Smoker November COLBY Cifuentes [place] - [facility] 11/30/2014 14:38:30 Do You Have An Advance [...] D etails LastModified Time What is your level of alcohol consumption? None Information not available 11/30/2014 What is your exercise level? None Information [...] ICD10 Code Diagnosis IMO Codes Diagnosis Note [id number] MD Sukhdeep Masters (Adult Med) [facility] [place] [address] 11/30/2014 14:22:06 12/01/2014 12:23:26 Obesity [id number] General ex amination of patient 778948959 29 y/o WF who was last seen in this office 01/23/2011, in the interim she had abnormal labs that were ordered by her Gynecologi , Dr. Sifuentes? that suggested pre diabetes. Migraine 43154322 Benign hypertension 58972285 Patient reports elevated readings at the Gynecologi 's office, her BP is stable without meds. I have discussed an appropriat e diet with her. Impaired f asting glycemia 294018075 Cyst of thyroid [id number] [id number] Patricia Minor MD [facility] (Adult Med) [address] [place] [address] 01/26/2015 10:24:45 01/26/2015 11:55:11 Cyst of thyroid 00716236 Complex Thyroid mass on US, previously seen by Dr. Alton manzo at [facility]. The last note I have is from [...] patient was reassured. Impaired f asting glycemia 183610418 She really should change her diet. she needs to see a assembler camper. The other option is Bariatric surgery Fatigue 12169169 She is at high risk for TERE, I will check her B12 level, however I suspect that her mood disorder may be playing a role. Addendum: Epsworth score was only 4 Depressive disorder 86589296 She apparently has a chronic history and she has failed Prozac, Celexa and recently Wellbutrin . She is tired and worries constantly , she had previously seen by a counselor at [facility], however she did not find this productive Hyperlipidemia 31965302 Lo w cholestero l diet Health Concerns Section Related Observation LastModified by Organization Detai ls LastModified Time None Recorded Concern Status LastModified by Organization Details LastModified Time None Recorded Advance Directives Directive N: Payers Insurance Date Sequence Insurance Name Policy Number Policy Bates Covered Member ID Bates Member ID Guarantor Name 01/23/2015 1 [facility] DOS PRIOR TO 2021 (MEDICAID REPLACEMENT - HMO) Theresa Dutta [id number] Theresa Dutta Notes Date Note Type Note Provider Name and Address Organization Details Recorded Time 5 text/html HeadacheReported by PatientHPIFor onset/timing, patient reportsworsebut reportsintermittent episodes lasting:andoccur every few weeks. For associated symptoms, patient reportsnausea,vomiting,phot ophobia,confusion, andsleep disturbancesbut reportsno slurred speech,no preceeding aura,no motor paralysis, andno dizziness. For severity, patient reportssevere. For duration, patient reportsintermittent. For context, patient reportsnot related to trauma. For aggravating factors, patient reportsnothing makes it worse. For alleviating factors, patient reportsotc medicationandsleep(excedrin may sometimes help). Patricia Minor MD Attn: Accounting,[address] [facility], [place], [address], [facility] 11/30/2014 15:05:30 5 text/html FatigueReported by PatientHPIFor timing, patient reportsworse. For context, patient reportssymptoms do not improve on weekends/vacations. For modifying factors, patient reportsnew stressors in lifebut reportstaking vitamins. For associated symptoms, patient reportsanxietyandrecent change in weightbut reportsno drug/alcohol withdrawalandperiods of not breathing (apnea) have not been observed. For quality, patient reportssymptoms worse during the day. For severity, patient reportsnormal sleep patterns. For duration, patient reportsconstant. Patricia Minor MD Attn: Accounting,[address] [facility], [place], [address], [facility] 01/26/2015 13:21:17 OBGyn Episode No OBEpisode recorded.
== END 2025-06-13 10:54 | disposition home or self-care (01) ==
LOC: ANHAUDIO 10:53
PROVIDERS: PCP Emergency Medicine; Visit Provider Otolaryngology Otolaryngology/Facial Plastic Surgery
DX: H91.93 Unspecified hearing loss, bilateral (principal)
CPT/HCPCS: 92557; 92567

== ENCOUNTER 2025-07-25 09:33 | Outpatient (CLI) | payer OTHER, SELFPAY ==
--- NOTE | ~2025-07-25 | CT_ITS ---
EXAMINATION: CT scan of sinuses without contrast: DATE: 07/25/2025. INDICATION: Chronic sinusitis. TECHNIQUE: CT was performed through the sinuses without contrast with multiplanar reconstruction. Radiation dose 324MGy C.M. COMPARISON: MRI brain dated 12/05/2024. FINDINGS: Moderate to significant chronic mucoperiosteal inflammation of the maxillary sinuses on both sides, right more prominent than the left. Multiple retention cysts are noted measuring up to 1.5 cm in diameter. Fluid level is noted in the right maxillary sinus. Ethmoid, sphenoid and frontal sinuses are clear. No focal lesions of the nasal cavity are seen. Mastoids and middle ear cavities are normal. IMPRESSION: 1. Moderate to significant chronic mucoperiosteal inflammation of the maxillary sinuses on both sides, right more than the left. Multiple retention cysts noted. Fluid level in the right maxillary sinus. 2. Remaining findings as described above. Reviewed, dictated and finalized at location [facility]. [facility] CURAT[facility] SPECIALIST IMPRESSION: 1. Moderate to significant chronic mucoperiosteal inflammation of the maxillary sinuses on both sides, right more than the left. Multiple retention cysts note d. Fluid level in the right maxillary sinus. 2. Remaining findings as described above.
--- OUTSIDE RECORDS SUMMARY | 2025-07-25 10:45 | XMS_ITS | Clinical Summary ---
Author Organization [address] Address [address] [place] [id number] Care Team Providers Care Support Service Tech Name Role Phone Terry River MD Primary [...] mouth daily 90 tablet 2 5 Active promethazine-DM (PROMETHAZINE-D M) 1.25-3 mg/mL syrupIndication s:Acute cough Take 5 mL by mouth every 4 (four) hours as needed for cough 120 mL 5 Active amoxicillin-cla vulanate (AUGMENTIN) 875-125 mg per tabletIndicatio ns:Acute cough Take 1 tablet by mouth 2 (two) times a day for 7 days 14 tablet 5 07/09/20 Active Problems Problem Noted Date Diagnosed Date TERE (obstructive sleep apnea) 02/10/2025 Morbid obesity with BMI of 40.0-44.9, adult 01/30 Morbid obesity 02/10/2025 Prediabetes 02/10/2025 PCOS (polycystic ovarian syndrome) 02/10/2025 Essential hypertension 02/10/2025 Diabetes mellitus type II, non insulin dependent 02/10/2025 Encounters Date Type Department Care Team Description 07/02/2025 6:30 PM CDT Office Visit [facility] at [address] [phone] Dulce Jackson NP Sore throat (Primary Dx); Acute cough 04/25/2025 Telephone [facility] Cardiology at [address] [place] [address] Alonzo Green MD from Last 3 Months [...] on file 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 Gender Identity Not on file Sexual Orientation Not on file Last Filed Vital Signs Vital Sign Reading Time Taken Comments Blood Pressure 145/94 07/02/2025 6:30 PM CDT Pulse 73 07/02/2025 6:30 PM CDT Temperature 36.8 C (98.3 F) 07/02/2025 6:30 PM CDT Respiratory Rate 20 07/02/2025 6:30 PM CDT Oxygen Saturation 98% 07/02/2025 6:30 PM CDT Inhaled Oxygen Concentration - - Weight 129.7 kg (286 lb) 07/02/2025 6:30 PM CDT Height 172.7 cm (5' 8) 07/02/2025 6:30 PM CDT Body Mass Index 43.49 07/02/2025 6:30 PM CDT Plan of Treatment Health Maintenance Due [...] Name Priority Date/Time Associated Diagnosis Comments POCT RAPID STREP Routine 07/02/2025 6:44 PM CDT Sore throat POCT LIPID PANEL Routine 02/10/2025 9:27 AM CDT Essential hypertension from Last 3 Months or Most Recently Relevant to Health Maintenance Results * POCT rapid strep A (07/02/2025 6:44 PM CDT) Rapid Strep A, POC Negative Negative Swab 07/02/2025 6:44 PM CDT Dulce Jackson NP POINT OF CARE TEST ORDERAB LES Final Result * POCT lipid panel (02/10/2025 9:27 AM CDT) Cholesterol, POC 159 <200 MG/DL HDL, POC 42 >=40 mg/dL Triglycerides, POC 125 <=149 mg/dL LDL Cholesterol POC 92 <=129 mg/dL Chol/HDL Ratio, POC 3.8 NONE Non-HDL Cholesterol, POC 117 NONE mg/dL Cholesterol Total, POC 159 30 - 199 mg/dL Capillary blood 02/10/2025 9 :27 AM CDT Alonzo Green MD POINT OF CARE TEST ORDERA BLES Final Result from Last 3 Months or Most Recently Relevant to Health Maintenance Insurance [facility] Care Teams Support Service Tech Relationship Specialty Start Date End Date Terry River MD [address] [place] [address] PCP - General Emergency Medicine 02/09/25
--- OUTSIDE RECORDS SUMMARY | 2025-07-25 10:45 | XMS_ITS | Clinical Summary ---
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
== END 2025-07-25 09:34 | disposition home or self-care (01) ==
PROVIDERS: PCP Emergency Medicine; Visit Provider Otolaryngology Otolaryngology/Facial Plastic Surgery
DX: J32.9 Chronic sinusitis, unspecified (principal)
CPT/HCPCS: 70486